=== PATIENT | female | born 1985 | race African-American/Black ===

== ENCOUNTER 2016-05-27 14:30 | Inpatient (IN) | payer OTHER ==
[2016-05-27 18:23] VITALS: BMI 25.4
--- NOTE | 2016-05-27 20:11 | HP ---
CIWA Score - CIWA Score Nausea/Vomitin-No Nausea/No Vomiting Muscle Tremors: 5 Anxiety: 4-Mod. Anxious/Guarded Agitation: 4-Moderately Restless Paroxysmal Sweats: 1-Minimal Palms Moist Orientation: 0-Oriented Tacttile Disturbances: 0-None Auditory Disturbances: 0-None Visual Disturbances: 0-None Headache: 2-Mild CIWA-Ar Total Score: 16 Admission ROS BHS - HPI Chief Complaint: C/O WITHDRAWAL SX'S. "I NEED HELP". SEEKING DETOX TXMENT Allergies/Adverse Reactions: Allergies Allergy/AdvReac Type Severity Reaction Status Date / Time No Known Allergies Allergy Verified 05/27/16 19:38 History of Present Illness: 31 Y.O. FEMALE WITH LONG HX OF ALCOHOLISM AND COCAINE DEPENDENCE ADMITTED TO DETOX TXMENT. DENIES ANY SIGNIFICANT PERIOD OF CLEAN TIME. Exam Limitations: No Limitations - Ebola screening Have you traveled outside of the country in the last 21 days: No Have you had contact with anyone from an Ebola affected area: No Have you been sick,other than usual withdrawal symptoms: No Do you have a fever: No - Review of Systems Constitutional: Night Sweats, Unintentional Wgt. Loss EENT: reports: No Symptoms Reported Respiratory: reports: No Symptoms reported Cardiac: reports: No Symptoms Reported GI: reports: No Symptoms Reported : reports: No Symptoms Reported Musculoskeletal: reports: No Symptoms Reported Integumentary: reports: No Symptoms Reported Neuro: reports: No Symptoms reported Endocrine: reports: No Symptoms Reported Hematology: reports: No Symptoms Reported Psychiatric: reports: Depressed Other Systems: Reviewed and Negative Patient History - Patient Medical History Hx Anemia: No Hx Asthma: No Hx Chronic Obstructive Pulmonary Disease (COPD): No Hx Cancer: No Hx Cardiac Disorders: No Hx Congestive Heart Failure: No Hx Hypertension: No Hx Hypercholesterolemia: No Hx Pacemaker: No HX Cerebrovascular Accident: No Hx Seizures: No Hx Dementia: No Hx Diabetes: No Hx Gastrointestinal Disorders: No Hx Liver Disease: No Hx Genitourinary Disorders: No Hx Sexually Transmitted Disorders: No Hx Renal Disease (ESRD): No Hx Thyroid Disease: No Hx Human Immunodeficiency Virus (HIV): No Hx Hepatitis C: No Hx Depression: Yes Hx Suicide Attempt: No Hx Bipolar Disorder: Yes Hx Schizophrenia: No - Patient Surgical History Past Surgical History: No Hx Neurologic Surgery: No Hx Cataract Extraction: No Hx Cardiac Surgery: No Hx Lung Surgery: No Hx Breast Surgery: No Hx Breast Biopsy: No Hx Abdominal Surgery: No Hx Appendectomy: No Hx Cholecystectomy: No Hx Genitourinary Surgery: No Hx Section: No Hx Orthopedic Surgery: No Hx Hysterectomy: No Anesthesia Reaction: No - PPD History Previous Implant?: Yes Documented Results: Negative w/o proof Implanted On Prior [facility] Admission?: Yes Date: 05/23/15 Results: 0MM PPD to be Administered?: Yes - Reproductive History Patient is a Female of Child Bearing Age (11 -55 yrs old): Yes Last Menstrual Period: 05/02/16 Patient : No - Smoking Cessation Smoking history: Current every day smoker Have you smoked in the past 12 months: Yes Aproximately how many cigarettes per day: 5 Cigars Per Day: 0 Hx Chewing Tobacco Use: No Initiated information on smoking cessation: Yes 'Breaking Loose' booklet given: 05/27/16 - Substance & Tx. History Hx Alcohol Use: Yes Hx Substance Use: Yes Substance Use Type: Alcohol, Cocaine Hx Substance Use Treatment: Yes ([facility]) - Substances Abused Alcohol Route: Oral Frequency: Daily Amount used: 1 pint Age of first use: 15 Date of Last Use: 05/27/16 Cocaine Route: Smoking Frequency: Daily Amount used: $20 Age of first use: 30 Date of Last Use: 05/26/16 Family Disease History - Family Disease History Family Disease History: Other: Mother (SUBSTANCE ABUSE) Admission Physical Exam BHS - Vital Signs Vital Signs: Vital Signs - 24 hr 05/27/16 18:21 Temperature 98.4 F Pulse Rate 75 Respiratory 18 Rate Blood Pressure 125/75 - Physical General Appearance: Yes: Mild Distress, Tremorous, Anxious HEENTM: Yes: EOMI, Normocephalic, Normal Voice, ERIKA, Pharynx Normal Respiratory: Yes: Chest Non-Tender, Lungs Clear, Normal Breath Sounds, No Respiratory Distress, No Accessory Muscle Use Neck: Yes: No masses,lesions,Nodules, Supple, Trachea in good position Breast: Yes: Breast Exam Deferred Cardiology: Yes: Regular Rhythm, Regular Rate, S1, S2 Abdominal: Yes: Normal Bowel Sounds, Non Tender, Soft Genitourinary: Yes: Within Normal Limits Back: Yes: Normal Inspection Musculoskeletal: Yes: full range of Motion, Gait Steady Extremities: Yes: Normal Capillary Refill, Normal Range of Motion, Non-Tender, Tremors Neurological: Yes: shelter case manager II-XII NML intact, Fully Oriented, Alert, Motor Strength 5/5 Integumentary: Yes: Normal Color, Warm, Moist Lymphatic: Yes: Within Normal Limits - Diagnostic (1) Cocaine dependence Current Visit: Yes Status: Chronic Qualifiers: Substance use status: uncomplicated Qualified Code(s): F14.20 - Cocaine dependence, uncomplicated (2) Nicotine dependence Current Visit: Yes Status: Chronic Qualifiers: Nicotine product type: cigarettes Substance use status: uncomplicated Qualified Code(s): F17.210 - Nicotine dependence, cigarettes, uncomplicated (3) Alcohol dependence with uncomplicated withdrawal Current Visit: Yes Status: Chronic Cleared for Admission [facility] - Detox or Rehab [facility] Level of Care: Medically Managed Detox Regimen/Protocol: Librium [facility] Breath Alcohol Content Breath Alcohol Content: 0.061 Urine Pregancy Test - Result Urine Test Results: Negative- NO Line Present Urine Drug Screen - Results Drug Screen Negative: No Urine Drug Screen Results: DOMINIC-Cocaine
[2016-05-27] MEDS ORDERED: MAGNESIUM CITRATE 300 ML BOTTLE PO PRN (20:22)
[2016-05-27] MEDS ORDERED: ACETAMINOPHEN 325 MG TABLET (FP) PO PRN (20:22)
[2016-05-27] MEDS ORDERED: chlordiazePOXIDE HCL 25 MG CAPSULE PO PRN (20:22)
[2016-05-27] MEDS ORDERED: MENTHOL/PHENOL 1 EACH UD MM PRN (20:22)
[2016-05-27] MEDS ORDERED: P-EPHED 60MG/TRIPROLIDI 2.5MG TABLET PO PRN (20:22)
[2016-05-27] MEDS ORDERED: diphenhydrAMINE HCL 50 MG CAPSULE PO PRN (20:22)
[2016-05-27] MEDS ORDERED: LOPERAMIDE HCL 2 MG CAPSULE PO PRN (20:22)
[2016-05-27] MEDS ORDERED: MAG HYDROX/AL HYDROX/SIMETH 30 ML UNIT-DOSE CUP PO PRN (20:22)
[2016-05-27] MEDS ORDERED: MAGNESIUM HYDROX 2400MG/30ML ORAL SUSPENSION 30 ML CUP PO PRN (20:22)
[2016-05-27] MEDS ORDERED: IBUPROFEN 400 MG TABLET (FP) PO PRN (20:22)
[2016-05-27] MEDS ORDERED: guaiFENesin/D-METHORPHAN HB 10 ML UNIT-DOSE CUPS PO PRN (20:22)
[2016-05-27] MEDS ORDERED: hydrOXYzine PAMOATE 50 MG CAPSULE (FP) PO PRN (20:22)
[2016-05-27] MEDS: NICOTINE POLACRILEX 2 MG GUM BC PRN (21:30)
[2016-05-27] MEDS: NICOTINE 14 MG/24 HOURS TOPICAL PATCH TD SCH (21:32)
[2016-05-27] MEDS: chlordiazePOXIDE HCL 25 MG CAPSULE PO SCH (23:48)
[2016-05-27] MEDS: THIAMINE HCL 100 MG TABLET (FP) PO SCH (23:48)
[2016-05-28] MEDS: chlordiazePOXIDE HCL 25 MG CAPSULE PO SCH ×4 (05:31→22:51)
[2016-05-28] MEDS: NICOTINE POLACRILEX 2 MG GUM BC PRN ×6 (05:33→20:07)
[2016-05-28 10:23] LABS: MCH 31.1 pg (25.7-33.7); MCHC 33.5 g/dl (32.0-36.0); MEAN CELL VOLUME 92.7 fl (80-96); PLATELET COUNT 118 K/MM3 (134-434); RDW 17.2 % (11.6-15.6); WHITE BLOOD COUNT 3.1 K/mm3 (4.0-10.0)
[2016-05-28] MEDS: PRENATAL VITAMINS W/ FOLIC ACID TABLET (FP) PO SCH (10:47)
[2016-05-28] MEDS: NICOTINE 14 MG/24 HOURS TOPICAL PATCH TD SCH (10:47)
--- NOTE | 2016-05-28 10:54 | PN ---
S CIWA - CIWA Score Nausea/Vomitin-No Nausea/No Vomiting Muscle Tremors: 4-Moderate,w/Arms Extend Anxiety: 3 Agitation: 4-Moderately Restless Paroxysmal Sweats: 3 Orientation: 0-Oriented Tacttile Disturbances: 0-None Auditory Disturbances: 0-None Visual Disturbances: 0-None Headache: 0-None Present CIWA-Ar Total Score: 14 BHS Progress Note (SOAP) Subjective: agitation sweats interrupted sleep irritable Objective: 05/28/16 10:53 Vital Signs Temperature 98.2 F 05/28/16 06:55 Pulse Rate 81 05/28/16 06:55 Respiratory Rate 18 05/28/16 06:55 Blood Pressure 123/75 05/28/16 06:55 O2 Sat by Pulse Oximetry (%) Laboratory Tests 05/28/16 05/28/16 07:00 07:00 WBC 3.1 L D RBC 4.20 Hgb 13.0 Hct 38.9 MCV 92.7 MCHC 33.5 RDW 17.2 H Plt Count 118 L D MPV 10.0 D Sodium 139 Potassium 3.8 Chloride 99 labs pending awake/alert ambulating no acute distress Assessment: 05/28/16 10:54 withdrawal sx Plan: continue detox increase fluids labs pending
[2016-05-28 10:58] LABS: ALBUMIN 3.1 g/dl (3.4-5.0); ALK PHOS 123 U/L (45-117); ANION GAP 9 (8-16); CALCIUM 8.2 mg/dL (8.5-10.1); CO2 31 mmol/L (21-32); CREATININE 0.6 mg/dL (0.55-1.02); GLUCOSE,RANDOM 83 mg/dL (74-106); SGOT/AST 228 U/L (15-37); SGPT/ALT 69 U/L (12-78); TOT PROT 6.8 g/dl (6.4-8.2)
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
[2016-05-28] MEDS ORDERED: HALOPERIDOL 5 MG TABLET (FP) PO SCH (22:00)
[2016-05-28] MEDS: THIAMINE HCL 100 MG TABLET (FP) PO SCH (22:51)
[2016-05-28] MEDS: BENZTROPINE MESYLATE 1 MG TABLET (FP) PO SCH (22:51)
[2016-05-28] MEDS: HALOPERIDOL 2 MG TABLET PO SCH (22:51)
[2016-05-29] MEDS: chlordiazePOXIDE HCL 25 MG CAPSULE PO SCH ×3 (04:48→17:33)
[2016-05-29] MEDS: NICOTINE POLACRILEX 2 MG GUM BC PRN ×6 (04:49→20:29)
--- NOTE | 2016-05-29 10:43 | PN ---
S CIWA - CIWA Score Nausea/Vomitin-No Nausea/No Vomiting Muscle Tremors: 3 Anxiety: 3 Agitation: 4-Moderately Restless Paroxysmal Sweats: 3 Orientation: 0-Oriented Tacttile Disturbances: 0-None Auditory Disturbances: 0-None Visual Disturbances: 0-None Headache: 0-None Present CIWA-Ar Total Score: 13 S Progress Note (SOAP) Subjective: agitation irritable interrupted sleep body aches Objective: 05/29/16 10:42 Vital Signs Temperature 97.9 F 05/29/16 10:34 Pulse Rate 66 05/29/16 10:34 Respiratory Rate 18 05/29/16 10:34 Blood Pressure 109/58 05/29/16 10:34 O2 Sat by Pulse Oximetry (%) Laboratory Tests 05/28/16 05/28/16 05/28/16 07:00 07:00 07:00 WBC 3.1 L D RBC 4.20 Hgb 13.0 Hct 38.9 MCV 92.7 MCHC 33.5 RDW 17.2 H Plt Count 118 L D MPV 10.0 D Sodium 139 Potassium 3.8 Chloride 99 Carbon Dioxide 31 Anion Gap 9 BUN 6 L D Creatinine 0.6 Creat Clearance w eGFR > 60 Random Glucose 83 Calcium 8.2 L Total Bilirubin 1.0 D AST 228 H D ALT 69 D Alkaline Phosphatase 123 H D Total Protein 6.8 Albumin 3.1 L RPR Titer Nonreactive labs pending awake/alert lying in bed no acute distress Assessment: 05/29/16 10:43 withdrawal sx Plan: continue detox increase fluids repeat cbc/cmp and f/u pending labs
[2016-05-29] MEDS: PRENATAL VITAMINS W/ FOLIC ACID TABLET (FP) PO SCH (10:56)
[2016-05-29] MEDS: HALOPERIDOL 2 MG TABLET PO SCH ×2 (10:56→22:38)
[2016-05-29] MEDS: BENZTROPINE MESYLATE 1 MG TABLET (FP) PO SCH ×2 (10:57→22:38)
[2016-05-29] MEDS: NICOTINE 14 MG/24 HOURS TOPICAL PATCH TD SCH (10:57)
--- NOTE | 2016-05-29 11:57 | EKG ---
Test Reason : Blood Pressure : / mmHG Vent. Rate : 065 BPM Atrial Rate : 065 BPM P-R Int : 158 ms QRS Dur : 080 ms QT Int : 450 ms P-R-T Axes : 075 064 048 degrees QTc Int : 468 ms NORMAL SINUS RHYTHM WITH SINUS ARRHYTHMIA POSSIBLE LEFT ATRIAL ENLARGEMENT NO PREVIOUS ECGS AVAILABLE Confirmed by AAKASH VALDES MD ([id number]) on 05/29/2016 11:57:10 AM Referred By: Confirmed By:AAKASH VALDES MD
[2016-05-29] MEDS: chlordiazePOXIDE 5 MG CAPSULE PO SCH (22:38)
[2016-05-29] MEDS: THIAMINE HCL 100 MG TABLET (FP) PO SCH (22:39)
[2016-05-30] MEDS: chlordiazePOXIDE 5 MG CAPSULE PO SCH ×2 (06:45→10:58)
[2016-05-30] MEDS: NICOTINE POLACRILEX 2 MG GUM BC PRN ×3 (06:46→13:02)
[2016-05-30 10:03] VITALS: PULSE 78
[2016-05-30 10:24] LABS: BASOPHIL 0.7 % (0-2.0); EOSINOPHIL 6.4 % (0-4.5); MCH 30.9 pg (25.7-33.7); MCHC 32.8 g/dl (32.0-36.0); MEAN CELL VOLUME 94.3 fl (80-96); MEAN PLT VOLUME 11.1 fl (7.5-11.1); NEUTROPHILS 48.9 % (42.8-82.8); RDW 16.8 % (11.6-15.6); WHITE BLOOD COUNT 5.6 K/mm3 (4.0-10.0)
[2016-05-30 10:57] LABS: ANION GAP 11 (8-16); BILIRUBIN,TOTAL 0.4 mg/dL (0.2-1.0); CALCIUM 8.6 mg/dL (8.5-10.1); CO2 24 mmol/L (21-32); CREATININE 0.6 mg/dL (0.55-1.02); GLUCOSE,RANDOM 134 mg/dL (74-106); SGOT/AST 111 U/L (15-37); SGPT/ALT 61 U/L (12-78); TOT PROT 6.7 g/dl (6.4-8.2)
[2016-05-30 10:58] LABS: ALK PHOS 122 U/L (45-117)
[2016-05-30] MEDS: BENZTROPINE MESYLATE 1 MG TABLET (FP) PO SCH (10:58)
[2016-05-30] MEDS: PRENATAL VITAMINS W/ FOLIC ACID TABLET (FP) PO SCH (10:58)
[2016-05-30] MEDS: HALOPERIDOL 2 MG TABLET PO SCH (10:59)
[2016-05-30] MEDS: NICOTINE 14 MG/24 HOURS TOPICAL PATCH TD SCH (10:59)
[2016-05-30 11:14] LABS: PLATELET COMMENT2 NO CLUMPING NOTED; PLATELET COUNT 120 K/MM3 (134-434); PLATELET ESTIMATE DECREASED (NORMAL)
--- NOTE | 2016-05-30 14:02 | PN ---
S Progress Note (SOAP) Subjective: ALERT,IRRITABLE,ANXIOUS,INTERRUPTED SLEEP Objective: 05/30/16 14:01 Vital Signs Temperature 97.7 F 05/30/16 10:03 Pulse Rate 78 05/30/16 10:03 Respiratory Rate 18 05/30/16 10:03 Blood Pressure 115/69 05/30/16 10:03 O2 Sat by Pulse Oximetry (%) Assessment: 05/30/16 14:02 WITHDRAWAL SYMPTOM Plan: CONTINUE DETOX,DISCHARGE IN AM
[2016-05-30 15:08] VITALS: BP 103/62; TEMP 98.1
--- NOTE | 2016-05-30 15:24 | PN ---
[facility] Progress Note Note: patient stated she would like to be discharged due to personal problem,seen by counselor, stable for discharged,advise to call intake for rehab on Wed06/01/16
--- NOTE | 2016-05-30 15:28 | DS ---
[facility] Detox Discharge Summary Admission Date: 05/27/16 Discharge Date: 05/30/16 - History Present History: Alcohol Dependence, Cannabis Dependence, Cocaine Dependence Additional Comments: patient has to leave due to personal problem,seen by counselor,stable for discharge,to return to rehab on 06/01/16 Pertinent Past History: nicotine dependence - Physical Exam Results Vital Signs: Vital Signs Temperature 98.1 F 05/30/16 15:07 Pulse Rate 78 05/30/16 15:07 Respiratory Rate 16 05/30/16 15:07 Blood Pressure 103/62 05/30/16 15:07 O2 Sat by Pulse Oximetry (%) Pertinent Admission Physical Exam Findings: withdrawal symptom - Treatment Hospital Course: Detox Protocol Followed, Detoxed Safely, Responded well, Discharged Condition Good, Rehab Referral Accepted Patient has Accepted [facility] Referral [facility] - Medication Discharge Medications: Ambulatory Orders Risperidone [Risperdal] 1 mg PO BID 05/21/15 Trazodone HCl [Desyrel -] 100 mg PO HS #30 tablet 11/07/15 Benztropine Mesylate [Cogentin -] 1 mg PO HS #30 tablet 05/28/16 Haloperidol [Haldol -] 5 mg PO HS #30 tablet 05/28/16 - AMA Did Patient Leave Against Medical Advice: No
[2016-05-30] MEDS ORDERED: chlordiazePOXIDE HCL 10 MG CAPSULE PO SCH (23:00)
== END 2016-05-30 16:11 | disposition home or self-care (01) | DRG 897 ==
LOC: YASAS 14:30 → Y6N 19:16
PROVIDERS: ADMIT Internal Medicine Addiction Medicine; ATTEND Internal Medicine Addiction Medicine
PROC: HZ2ZZZZ Detoxification Services for Substance Abuse Treatment (ICD-10-PCS; principal; 2016-05-30)
DX: F10.230 Alcohol dependence with withdrawal, uncomplicated (principal); F14.20 Cocaine dependence, uncomplicated; F12.20 Cannabis dependence, uncomplicated; F17.210 Nicotine dependence, cigarettes, uncomplicated; F31.9 Bipolar disorder, unspecified
CPT/HCPCS: 36415; 80053; 85025; 85027; 86593; 93005; 93010

== ENCOUNTER 2017-02-02 13:30 | Inpatient (IN) | payer OTHER ==
[2017-02-02 21:07] VITALS: BMI 27.6
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
[2017-02-02] MEDS ORDERED: MAG HYDROX/AL HYDROX/SIMETH 30 ML UNIT-DOSE CUP PO PRN (21:23)
[2017-02-02] MEDS ORDERED: guaiFENesin/D-METHORPHAN HB 10 ML UNIT-DOSE CUPS PO PRN (21:23)
[2017-02-02] MEDS ORDERED: MAGNESIUM CITRATE 300 ML BOTTLE PO PRN (21:23)
[2017-02-02] MEDS ORDERED: MENTHOL/PHENOL 1 EACH UD MM PRN (21:23)
[2017-02-02] MEDS ORDERED: chlordiazePOXIDE HCL 25 MG CAPSULE PO PRN (21:23)
[2017-02-02] MEDS ORDERED: P-EPHED 60MG/TRIPROLIDI 2.5MG TABLET PO PRN (21:23)
[2017-02-02] MEDS ORDERED: LOPERAMIDE HCL 2 MG CAPSULE PO PRN (21:23)
[2017-02-02] MEDS: chlordiazePOXIDE HCL 25 MG CAPSULE PO SCH (22:25)
[2017-02-02] MEDS: THIAMINE HCL 100 MG TABLET (FP) PO SCH (22:25)
[2017-02-02 23:32] LABS: URINE APPEARANCE SLCLOUDY; URINE BILIRUBIN NEGATIVE (NEGATIVE); URINE BLOOD NEGATIVE (NEGATIVE); URINE COLOR YELLOW; URINE GLUCOSE (UA) NEGATIVE (NEGATIVE); URINE KETONE NEGATIVE (NEGATIVE); URINE NITRITE NEGATIVE (NEGATIVE); URINE PROTEIN NEGATIVE (NEGATIVE); URINE UROBILINOGEN NEGATIVE mg/dL (0.2-1.0)
[2017-02-03] MEDS: NICOTINE POLACRILEX 2 MG GUM BC PRN ×5 (05:24→22:36)
[2017-02-03] MEDS: chlordiazePOXIDE HCL 25 MG CAPSULE PO SCH ×4 (05:24→22:34)
--- NOTE | 2017-02-03 07:50 | CONSULT ---
[facility] Psychiatric Consult - Data Date of interview: 02/03/17 Admission source: [facility] Identifying data: This is 31 years old female with psychiatrichospitalization history intoxicated with: Cocaine, Alcohol and Nicotine, history of Cannabis and Xanax abuse as well Substance Abuse History: - Smoking Cessation. Smoking history: Current every day smoker. Have you smoked in the past 12 months: Yes. Aproximately how many cigarettes per day: 5. Cigars Per Day: 0. Hx Chewing Tobacco Use: No. Initiated information on smoking cessation: Yes. 'Breaking Loose' booklet given : 02/02/17. - Substance & Tx. History. Hx Alcohol Use: Yes. Hx Substance Use : Yes. Substance Use Type: Alcohol, Cocaine, Marijuana. Hx Substance Use Treatment: Yes (04/2016 [facility]). - Substances Abused. Alcohol. Route: Oral. Frequency: Daily. Amount used: 1/2 pint vodka+12ozx2 beer. Age of first use: 15. Date of Last Use: 02/01/17 Medical History: Denies significant medical issues, as per computer history of Aspiration pneumonia, Seizure and Thyroid disorder. Psychiatric History: Patient reports history of Bipolar Disorder with most recent psychiatric [facility]otal[facility] on [address] [facility] for safety, reports currently taking: Trazodone 100mg po qhs. Haldol 5mg po qhs. Cogentine 1mg po qhs Physical/Sexual Abuse/Trauma History: Denies Additional Comment: Trazodone 100mg po qhs. Haldol 5mg po qhs. Cogentine 1mg po qhs Mental Status Exam - Mental Status Exam Alert and Oriented to: Person Cognitive Function: Fair Patient Appearance: Unkempt Mood: Sad Affect: Flat Patient Behavior: Sedated Speech Pattern: Delayed Voice Loudness: Mildly Soft/Quiet Thought Process: Circumstantial Thought Disorder: Being Controlled Hallucinations: Denies Suicidal Ideation: Denies Homicidal Ideation: Denies Insight/Judgement: Fair Sleep: Difficulty falling asleep Appetite: Fair Muscle strength/Tone: Mild Hypotonicity Gait/Station: Shuffling Additional Comments: Trazodone 100mg po qhs. Haldol 5mg po qhs. Cogentine 1mg po qhs Psychiatric Findings - Problem List ([place] 1, 2,3) (1) Alcohol dependence with uncomplicated withdrawal Current Visit: Yes Status: Acute (2) Nicotine dependence Current Visit: Yes Status: Acute Qualifiers: Nicotine product type: cigarettes Substance use status: in withdrawal Qualified Code(s): F17.213 - Nicotine dependence, cigarettes, with withdrawal (3) Cannabis dependence, uncomplicated Current Visit: Yes Status: Chronic (4) Cocaine dependence, uncomplicated Current Visit: Yes Status: Chronic (5) Bipolar II disorder Current Visit: Yes Status: Suspected (6) Cocaine dependence Current Visit: No Status: Acute Qualifiers: Substance use status: uncomplicated Qualified Code(s): F14.20 - Cocaine dependence, uncomplicated (7) Marijuana dependence Current Visit: No Status: Acute (8) Uncomplicated alcohol dependence Current Visit: No Status: Acute (9) Bipolar I disorder Current Visit: No Status: Chronic (10) Bipolar 1 disorder, depressed Current Visit: No Status: Suspected - Initial Treatment Plan Initial Treatment Plan: Trazodone 100mg po qhs. Haldol 5mg po qhs. Cogentine 1mg po qhs
--- NOTE | 2017-02-03 10:24 | EKG ---
Test Reason : Blood Pressure : / mmHG Vent. Rate : 070 BPM Atrial Rate : 070 BPM P-R Int : 136 ms QRS Dur : 080 ms QT Int : 410 ms P-R-T Axes : 059 064 064 degrees QTc Int : 442 ms NORMAL SINUS RHYTHM NORMAL ECG WHEN COMPARED WITH ECG OF 27-MAY-2016 20:16, NO SIGNIFICANT CHANGE WAS FOUND Confirmed by COCO HATHAWAY MD ([id number]) on 02/03/2017 10:23:42 AM Referred By: Confirmed By:COCO HATHAWAY MD
[2017-02-03] MEDS: PRENATAL VITAMINS W/ FOLIC ACID TABLET (FP) PO SCH (10:50)
[2017-02-03] MEDS: NICOTINE 14 MG/24 HOURS TOPICAL PATCH TD SCH (10:50)
[2017-02-03 11:12] LABS: MCHC 33.3 g/dl (32.0-36.0); MEAN PLT VOLUME 9.6 fl (7.5-11.1); PLATELET COUNT 230 K/MM3 (134-434); WHITE BLOOD COUNT 6.4 K/mm3 (4.0-10.0)
--- NOTE | 2017-02-03 11:14 | PN ---
S CIWA - CIWA Score Nausea/Vomitin-No Nausea/No Vomiting Muscle Tremors: 4-Moderate,w/Arms Extend Anxiety: 3 Agitation: 4-Moderately Restless Paroxysmal Sweats: 3 Orientation: 0-Oriented Tacttile Disturbances: 0-None Auditory Disturbances: 0-None Visual Disturbances: 0-None Headache: 0-None Present CIWA-Ar Total Score: 14 [facility] Progress Note (SOAP) Subjective: irritable agitation sweats tired Objective: 02/03/17 11:13 Vital Signs Temperature 98.1 F 02/03/17 10:18 Pulse Rate 69 02/03/17 10:18 Respiratory Rate 18 02/03/17 10:18 Blood Pressure 123/85 02/03/17 10:18 O2 Sat by Pulse Oximetry (%) Laboratory Tests 02/02/17 22:17 Urine Color Yellow Urine Appearance Slcloudy Urine pH 6.0 Ur Specific [place] 1.018 Urine Protein Negative Urine Glucose (UA) Negative Urine Ketones Negative Urine Blood Negative Urine Nitrite Negative Urine Bilirubin Negative Urine Urobilinogen Negative labs pending aaox3 ambulating no acute distress Assessment: 02/03/17 11:14 withdrawal sx Plan: continue detox increase fluids labs pending
[2017-02-03 11:16] LABS: URINE LEUK ESTERASE Negative (NEGATIVE)
[2017-02-03 11:25] LABS: ALBUMIN 3.3 g/dl (3.4-5.0); ALK PHOS 106 U/L (45-117); ANION GAP 8 (8-16); BILIRUBIN,TOTAL 0.7 mg/dL (0.2-1.0); CALCIUM 8.8 mg/dL (8.5-10.1); CO2 29 mmol/L (21-32); CREATININE 0.4 mg/dL (0.55-1.02); GLUCOSE,RANDOM 68 mg/dL (74-106); SGOT/AST 20 U/L (15-37); SGPT/ALT 14 U/L (12-78); TOT PROT 6.8 g/dl (6.4-8.2)
[2017-02-03] MEDS: IBUPROFEN 400 MG TABLET (FP) PO PRN (17:10)
[2017-02-03] MEDS: ACETAMINOPHEN 325 MG TABLET (FP) PO PRN (19:32)
[2017-02-03] MEDS: HALOPERIDOL 5 MG TABLET (FP) PO SCH (22:34)
[2017-02-03] MEDS: traZODone HCL 100 MG TABLET (FP) PO SCH (22:34)
[2017-02-03] MEDS: BENZTROPINE MESYLATE 1 MG TABLET (FP) PO SCH (22:34)
[2017-02-03] MEDS: THIAMINE HCL 100 MG TABLET (FP) PO SCH (22:34)
[2017-02-04] MEDS: NICOTINE POLACRILEX 2 MG GUM BC PRN ×6 (05:55→22:38)
[2017-02-04] MEDS: chlordiazePOXIDE HCL 25 MG CAPSULE PO SCH ×3 (07:36→17:29)
[2017-02-04] MEDS: NICOTINE 14 MG/24 HOURS TOPICAL PATCH TD SCH (11:00)
[2017-02-04] MEDS: PRENATAL VITAMINS W/ FOLIC ACID TABLET (FP) PO SCH (11:00)
--- NOTE | 2017-02-04 11:33 | PN ---
[facility] CIWA - CIWA Score Nausea/Vomitin-No Nausea/No Vomiting Muscle Tremors: 4-Moderate,w/Arms Extend Anxiety: 3 Agitation: 2 Paroxysmal Sweats: 2 Orientation: 0-Oriented Tacttile Disturbances: 0-None Auditory Disturbances: 0-None Visual Disturbances: 0-None Headache: 0-None Present CIWA-Ar Total Score: 11 [facility] Progress Note (SOAP) Subjective: back pain sweats shakes agitation Objective: 02/04/17 11:31 Vital Signs Temperature 96.3 F L 02/04/17 09:59 Pulse Rate 75 02/04/17 09:59 Respiratory Rate 18 02/04/17 09:59 Blood Pressure 112/76 02/04/17 09:59 O2 Sat by Pulse Oximetry (%) Laboratory Tests 02/02/17 02/03/17 02/03/17 22:17 07:00 07:00 WBC 6.4 RBC 4.31 Hgb 13.4 Hct 40.1 MCV 93.0 MCH 31.0 MCHC 33.3 RDW 15.0 D Plt Count 230 D MPV 9.6 D Sodium 138 Potassium 4.1 Chloride 101 Carbon Dioxide 29 D Anion Gap 8 BUN 10 D Creatinine 0.4 L D Creat Clearance w eGFR > 60 Random Glucose 68 L D Calcium 8.8 Total Bilirubin 0.7 D AST 20 D ALT 14 D Alkaline Phosphatase 106 Total Protein 6.8 Albumin 3.3 L Urine Color Yellow Urine Appearance Slcloudy Urine pH 6.0 Ur Specific [place] 1.018 Urine Protein Negative Urine Glucose (UA) Negative Urine Ketones Negative Urine Blood Negative Urine Nitrite Negative Urine Bilirubin Negative Urine Urobilinogen Negative RPR Titer 02/03/17 07:00 WBC RBC Hgb Hct MCV MCH MCHC RDW Plt Count MPV Sodium Potassium Chloride Carbon Dioxide Anion Gap BUN Creatinine Creat Clearance w eGFR Random Glucose Calcium Total Bilirubin AST ALT Alkaline Phosphatase Total Protein Albumin Urine Color Urine Appearance Urine pH Ur Specific [place] Urine Protein Urine Glucose (UA) Urine Ketones Urine Blood Urine Nitrite Urine Bilirubin Urine Urobilinogen RPR Titer Nonreactive aaox3 ambulating no acute distress Assessment: 02/04/17 11:33 withdrawal sx Plan: continue detox increase fluids analgesic balm
[2017-02-04] MEDS: METHYL SALICYLATE/MENTHOL OINT 30 GM TUBE TP SCH ×2 (12:23→22:33)
[2017-02-04] MEDS: MAGNESIUM HYDROX 2400MG/30ML ORAL SUSPENSION 30 ML CUP PO PRN (19:11)
[2017-02-04] MEDS: BENZTROPINE MESYLATE 1 MG TABLET (FP) PO SCH (22:35)
[2017-02-04] MEDS: HALOPERIDOL 5 MG TABLET (FP) PO SCH (22:35)
[2017-02-04] MEDS: THIAMINE HCL 100 MG TABLET (FP) PO SCH (22:35)
[2017-02-04] MEDS: chlordiazePOXIDE 5 MG CAPSULE PO SCH (22:35)
[2017-02-04] MEDS: traZODone HCL 100 MG TABLET (FP) PO SCH (22:35)
[2017-02-05] MEDS: chlordiazePOXIDE 5 MG CAPSULE PO SCH ×2 (05:51→10:40)
[2017-02-05] MEDS: NICOTINE POLACRILEX 2 MG GUM BC PRN ×5 (05:52→21:15)
[2017-02-05] MEDS: IBUPROFEN 400 MG TABLET (FP) PO PRN (05:53)
[2017-02-05] MEDS: MAGNESIUM HYDROX 2400MG/30ML ORAL SUSPENSION 30 ML CUP PO PRN (06:01)
--- NOTE | 2017-02-05 09:34 | PN ---
[facility] Progress Note Note: pt states she feels better; I want to go to rehab today. no s/s of withdrawals
--- NOTE | 2017-02-05 09:36 | DS ---
[facility] Detox Discharge Summary Admission Date: 02/02/17 Discharge Date: 02/05/17 - History Present History: Alcohol Dependence, Cannabis Dependence, Cocaine Dependence - Physical Exam Results Vital Signs: Vital Signs Temperature 96.8 F L 02/05/17 06:00 Pulse Rate 83 02/05/17 06:00 Respiratory Rate 18 02/05/17 06:00 Blood Pressure 100/65 02/05/17 06:00 O2 Sat by Pulse Oximetry (%) - Treatment Hospital Course: Detox Protocol Followed, Detoxed Safely, Responded well, Discharged Condition Good, Rehab Referral Accepted - Medication Discharge Medications: Ambulatory Orders Benztropine Mesylate [Cogentin -] 1 mg PO HS #30 tablet 05/28/16 Benztropine Mesylate [Cogentin -] 1 mg PO HS #30 tablet 02/03/17 Haloperidol [Haldol -] 5 mg PO HS #30 tablet 02/03/17 Trazodone HCl [Desyrel -] 100 mg PO HS #30 tablet 02/03/17 - Diagnosis (1) Alcohol dependence with uncomplicated withdrawal Current Visit: Yes Status: Chronic (2) Nicotine dependence Current Visit: Yes Status: Chronic Qualifiers: Nicotine product type: cigarettes Substance use status: uncomplicated Qualified Code(s): F17.210 - Nicotine dependence, cigarettes, uncomplicated (3) Cannabis dependence, uncomplicated Current Visit: Yes Status: Chronic (4) Cocaine dependence, uncomplicated Current Visit: Yes Status: Chronic (5) Bipolar II disorder Current Visit: Yes Status: Suspected (6) Uncomplicated alcohol dependence Current Visit: No Status: Acute (7) Bipolar 1 disorder, depressed Current Visit: No Status: Suspected (8) Enlarged thyroid Current Visit: No Status: Suspected (9) Seizure disorder Current Visit: No Status: Suspected - AMA Did Patient Leave Against Medical Advice: No
[2017-02-05] MEDS: METHYL SALICYLATE/MENTHOL OINT 30 GM TUBE TP SCH ×2 (10:39→22:00)
[2017-02-05] MEDS: PRENATAL VITAMINS W/ FOLIC ACID TABLET (FP) PO SCH (10:40)
[2017-02-05] MEDS: NICOTINE 14 MG/24 HOURS TOPICAL PATCH TD SCH (10:40)
[2017-02-05] MEDS: ACETAMINOPHEN 325 MG TABLET (FP) PO PRN ×2 (10:42→22:47)
[2017-02-05] MEDS ORDERED: COLLOIDAL OATMEAL 1 BAR EACH TP PRN (14:06)
--- NOTE | 2017-02-05 14:06 | HP ---
[facility] Re[facility] Assess/Revision - Admission History Admitted to Rehab from: [facility] [place] Date of Admission to Rehab: 02/05/17 - Vital signs Vital Signs: Vital Signs Period Temp Pulse Resp BP Sys/Reynolds Pulse Ox Last 24 Hr 96.8 F-98.1 F 75-93 18-20 97-117/58-75 - Findings Detox History & Physical reviewed: Yes Concur with findings: Yes Inpatient Rehab Admission - Initial Determination Are CD services needed?: Yes Free of communicable disease: Yes Not in need of hospitalization: Yes - Rehab Admission Criteria Previous failed treatment: Yes Patient is meeting Inpatient Rehab admission criteria:: Yes
[2017-02-05] MEDS ORDERED: AMMONIUM LACTATE 12% LOTION 225 GM BOTTLE TP PRN (14:07)
[2017-02-05] MEDS: BENZTROPINE MESYLATE 1 MG TABLET (FP) PO SCH (21:14)
[2017-02-05] MEDS: traZODone HCL 100 MG TABLET (FP) PO SCH (21:14)
[2017-02-05] MEDS: THIAMINE HCL 100 MG TABLET (FP) PO SCH (21:15)
[2017-02-05] MEDS: HALOPERIDOL 5 MG TABLET (FP) PO SCH (21:15)
[2017-02-05] MEDS ORDERED: chlordiazePOXIDE HCL 10 MG CAPSULE PO SCH (23:00)
[2017-02-06] MEDS: NICOTINE POLACRILEX 2 MG GUM BC PRN ×3 (06:14→15:56)
[2017-02-06 07:12] VITALS: TEMP 97.2
[2017-02-06] MEDS: PRENATAL VITAMINS W/ FOLIC ACID TABLET (FP) PO SCH (09:42)
[2017-02-06] MEDS: NICOTINE 14 MG/24 HOURS TOPICAL PATCH TD SCH (09:42)
[2017-02-06] MEDS: METHYL SALICYLATE/MENTHOL OINT 30 GM TUBE TP SCH ×2 (09:45→21:10)
[2017-02-06 11:00] VITALS: BP 122/70; PULSE 66
[2017-02-06 12:47] LABS: HIV 1 & 2 AB NEGATIVE; HIV 1 AGp24 NEGATIVE
[2017-02-06] MEDS: ACETAMINOPHEN 325 MG TABLET (FP) PO PRN (15:20)
[2017-02-06] MEDS: MAGNESIUM HYDROX 2400MG/30ML ORAL SUSPENSION 30 ML CUP PO PRN (15:54)
[2017-02-06] MEDS ORDERED: PT OWN MED DRAWER 7, Y5N ONE ×2 (20:03→23:38)
[2017-02-06] MEDS: traZODone HCL 100 MG TABLET (FP) PO SCH (21:09)
[2017-02-06] MEDS: THIAMINE HCL 100 MG TABLET (FP) PO SCH (21:09)
[2017-02-06] MEDS: BENZTROPINE MESYLATE 1 MG TABLET (FP) PO SCH (21:09)
[2017-02-06] MEDS: HALOPERIDOL 5 MG TABLET (FP) PO SCH (21:09)
== END 2017-02-06 22:45 | disposition left against medical advice (07) | DRG 894 ==
LOC: YASAS 13:30 → Y6N 21:13 → Y3E 02-05 13:32
PROVIDERS: ADMIT Internal Medicine; ATTEND Psychiatry & Neurology Psychiatry
PROC: HZ42ZZZ Group Counseling for Substance Abuse Treatment, Cognitive-Behavioral (ICD-10-PCS; principal; 2017-02-02)
DX: F10.230 Alcohol dependence with withdrawal, uncomplicated (principal); F14.20 Cocaine dependence, uncomplicated; F31.81 Bipolar II disorder; F31.89 Other bipolar disorder; F17.210 Nicotine dependence, cigarettes, uncomplicated; F12.20 Cannabis dependence, uncomplicated; E04.9 Nontoxic goiter, unspecified; Z86.69 Personal history of other diseases of the nervous system and sense organs
CPT/HCPCS: 36415; 80053; 81003; 85027; 86593; 87389; 93005; 93010

== ENCOUNTER 2017-03-11 12:59 | Inpatient (IN) | payer OTHER ==
[2017-03-11 13:54] VITALS: BMI 26.5
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
[2017-03-11] MEDS ORDERED: LOPERAMIDE HCL 2 MG CAPSULE PO PRN (19:53)
[2017-03-11] MEDS ORDERED: MAG HYDROX/AL HYDROX/SIMETH 30 ML UNIT-DOSE CUP PO PRN (19:53)
[2017-03-11] MEDS ORDERED: MAGNESIUM HYDROX 2400MG/30ML ORAL SUSPENSION 30 ML CUP PO PRN (19:53)
[2017-03-11] MEDS ORDERED: MENTHOL/PHENOL 1 EACH UD MM PRN (19:53)
[2017-03-11] MEDS ORDERED: P-EPHED 60MG/TRIPROLIDI 2.5MG TABLET PO PRN (19:53)
[2017-03-11] MEDS ORDERED: guaiFENesin/D-METHORPHAN HB 10 ML UNIT-DOSE CUPS PO PRN (19:53)
[2017-03-11] MEDS ORDERED: chlordiazePOXIDE HCL 25 MG CAPSULE PO PRN (19:53)
[2017-03-11] MEDS ORDERED: IBUPROFEN 400 MG TABLET (FP) PO PRN (19:53)
[2017-03-11] MEDS ORDERED: ACETAMINOPHEN 325 MG TABLET (FP) PO PRN (19:53)
[2017-03-11] MEDS ORDERED: MAGNESIUM CITRATE 300 ML BOTTLE PO PRN (19:53)
[2017-03-11] MEDS ORDERED: NICOTINE 14 MG/24 HOURS TOPICAL PATCH TD PRN (19:56)
[2017-03-11] MEDS: NICOTINE POLACRILEX 2 MG GUM BUC PRN (21:08)
[2017-03-11] MEDS: chlordiazePOXIDE HCL 25 MG CAPSULE PO SCH (22:46)
[2017-03-11] MEDS: THIAMINE HCL 100 MG TABLET (FP) PO SCH (22:47)
[2017-03-11 23:13] LABS: URINE APPEARANCE CLEAR; URINE BILIRUBIN NEGATIVE (NEGATIVE); URINE BLOOD NEGATIVE (NEGATIVE); URINE COLOR LTYELLOW; URINE GLUCOSE (UA) NEGATIVE (NEGATIVE); URINE KETONE NEGATIVE (NEGATIVE); URINE LEUK ESTERASE NEGATIVE (NEGATIVE); URINE NITRITE NEGATIVE (NEGATIVE); URINE PROTEIN NEGATIVE (NEGATIVE); URINE UROBILINOGEN NEGATIVE mg/dL (0.2-1.0)
[2017-03-12] MEDS: chlordiazePOXIDE HCL 25 MG CAPSULE PO SCH ×4 (06:35→23:20)
[2017-03-12] MEDS: NICOTINE POLACRILEX 2 MG GUM BUC PRN ×3 (07:23→17:51)
[2017-03-12 10:06] LABS: HEMATOCRIT 36.9 % (32.4-45.2); HEMOGLOBIN 12.2 GM/dL (10.7-15.3); MCH 29.8 pg (25.7-33.7); MCHC 32.9 g/dl (32.0-36.0); MEAN CELL VOLUME 90.6 fl (80-96); MEAN PLT VOLUME 9.3 fl (7.5-11.1); PLATELET COUNT 315 K/MM3 (134-434); RBC 4.08 M/mm3 (3.60-5.2); WHITE BLOOD COUNT 4.7 K/mm3 (4.0-10.0)
[2017-03-12] MEDS: PRENATAL VITAMINS W/ FOLIC ACID TABLET (FP) PO SCH (10:09)
[2017-03-12 10:27] LABS: CHLORIDE 103 mmol/L (98-107); POTASSIUM 4.2 mmol/L (3.5-5.1); SODIUM 137 mmol/L (136-145)
[2017-03-12 10:41] LABS: ALK PHOS 111 U/L (45-117); ANION GAP 7 (8-16); BILIRUBIN,TOTAL 0.5 mg/dL (0.2-1.0); BLOOD UREA NITROGEN 10 mg/dL (7-18); CALCIUM 7.9 mg/dL (8.5-10.1); CO2 27 mmol/L (21-32); CREATININE 0.4 mg/dL (0.55-1.02); GLUCOSE,RANDOM 83 mg/dL (74-106); SGOT/AST 14 U/L (15-37); SGPT/ALT 11 U/L (12-78); TOT PROT 6.6 g/dl (6.4-8.2)
--- NOTE | 2017-03-12 11:22 | PN ---
S CIWA - CIWA Score Nausea/Vomitin Muscle Tremors: 3 Anxiety: 3 Agitation: 3 Paroxysmal Sweats: 1-Minimal Palms Moist Orientation: 0-Oriented Tacttile Disturbances: 1-Very Mild Itch/Numbness Auditory Disturbances: 1-Very Mild Visual Disturbances: 0-None Headache: 2-Mild CIWA-Ar Total Score: 17 [facility] Progress Note (SOAP) Subjective: ALERT,IRRITABLE,ANXIOUS,INTERRUPTED SLEEP,TREMOR,PAIN IN THE BODY Objective: 03/12/17 11:20 Vital Signs Temperature 98.2 F 03/12/17 10:19 Pulse Rate 80 03/12/17 10:19 Respiratory Rate 18 03/12/17 10:19 Blood Pressure 123/74 03/12/17 10:19 O2 Sat by Pulse Oximetry (%) Laboratory Last Values WBC 4.7 K/mm3 (4.0-10.0) 03/12/17 07:30 RBC 4.08 M/mm3 (3.60-5.2) 03/12/17 07:30 Hgb 12.2 GM/dL (10.7-15.3) 03/12/17 07:30 Hct 36.9 % (32.4-45.2) 03/12/17 07:30 MCV 90.6 fl (80-96) 03/12/17 07:30 MCH 29.8 pg (25.7-33.7) 03/12/17 07:30 MCHC 32.9 g/dl (32.0-36.0) 03/12/17 07:30 RDW 15.0 % (11.6-15.6) 03/12/17 07:30 Plt Count 315 K/MM3 (134-434) D 03/12/17 07:30 MPV 9.3 fl (7.5-11.1) 03/12/17 07:30 Sodium 137 mmol/L (136-145) 03/12/17 07:30 Potassium 4.2 mmol/L (3.5-5.1) 03/12/17 07:30 Chloride 103 mmol/L (98-107) 03/12/17 07:30 Carbon Dioxide 27 mmol/L (21-32) 03/12/17 07:30 Anion Gap 7 (8-16) L 03/12/17 07:30 BUN 10 mg/dL (7-18) 03/12/17 07:30 Creatinine 0.4 mg/dL (0.55-1.02) L 03/12/17 07:30 Creat Clearance w eGFR > 60 (>60) 03/12/17 07:30 Random Glucose 83 mg/dL (74-106) 03/12/17 07:30 Calcium 7.9 mg/dL (8.5-10.1) L 03/12/17 07:30 Total Bilirubin 0.5 mg/dL (0.2-1.0) D 03/12/17 07:30 AST 14 U/L (15-37) L D 03/12/17 07:30 ALT 11 U/L (12-78) L D 03/12/17 07:30 Alkaline Phosphatase 111 U/L (45-117) 03/12/17 07:30 Total Protein 6.6 g/dl (6.4-8.2) 03/12/17 07:30 Albumin 3.0 g/dl (3.4-5.0) L 03/12/17 07:30 Urine Color Ltyellow 03/11/17 21:00 Urine Appearance Clear 03/11/17 21:00 Urine pH 6.0 (5.0-8.0) 03/11/17 21:00 Ur Specific [place] 1.010 (1.001-1.035) 03/11/17 21:00 Urine Protein Negative (NEGATIVE) 03/11/17 21:00 Urine Glucose (UA) Negative (NEGATIVE) 03/11/17 21:00 Urine Ketones Negative (NEGATIVE) 03/11/17 21:00 Urine Blood Negative (NEGATIVE) 03/11/17 21:00 Urine Nitrite Negative (NEGATIVE) 03/11/17 21:00 Urine Bilirubin Negative (NEGATIVE) 03/11/17 21:00 Urine Urobilinogen Negative mg/dL (0.2-1.0) 03/11/17 21:00 Ur Leukocyte Esterase Negative (NEGATIVE) 03/11/17 21:00 03/12/17 11:21 LAB PENDING EKG NSR Assessment: 03/12/17 11:21 WITHDRAWAL SYMPTOM Plan: CONTINUE DETOX
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
[2017-03-12] MEDS ORDERED: BENZTROPINE MESYLATE 1 MG TABLET (FP) PO SCH (22:00)
[2017-03-12] MEDS ORDERED: HALOPERIDOL 5 MG TABLET (FP) PO SCH (22:00)
[2017-03-12] MEDS: THIAMINE HCL 100 MG TABLET (FP) PO SCH (23:20)
[2017-03-13] MEDS: chlordiazePOXIDE HCL 25 MG CAPSULE PO SCH ×2 (05:49→10:19)
[2017-03-13] MEDS: NICOTINE POLACRILEX 2 MG GUM BUC PRN ×2 (05:49→10:24)
[2017-03-13] MEDS ORDERED: BACITRACIN 0.9 GM PACKET TP SCH (10:00)
[2017-03-13] MEDS: PRENATAL VITAMINS W/ FOLIC ACID TABLET (FP) PO SCH (10:18)
[2017-03-13 10:22] VITALS: BP 132/88; PULSE 74; TEMP 98.8
--- NOTE | 2017-03-13 10:49 | PN ---
S CIWA - CIWA Score Nausea/Vomitin Muscle Tremors: 3 Anxiety: 3 Agitation: 2 Paroxysmal Sweats: 1-Minimal Palms Moist Orientation: 0-Oriented Tacttile Disturbances: 1-Very Mild Itch/Numbness Auditory Disturbances: 1-Very Mild Visual Disturbances: 0-None Headache: 2-Mild CIWA-Ar Total Score: 16 [facility] Progress Note (SOAP) Subjective: ALERT,IRRITABLE,ANXIOUS,INTERRUPTED SLEEP,TREMOR Objective: 03/13/17 10:47 Vital Signs Temperature 98.8 F 03/13/17 10:21 Pulse Rate 74 03/13/17 10:21 Respiratory Rate 16 03/13/17 10:21 Blood Pressure 132/88 03/13/17 10:21 O2 Sat by Pulse Oximetry (%) Laboratory Last Values WBC 4.7 K/mm3 (4.0-10.0) 03/12/17 07:30 RBC 4.08 M/mm3 (3.60-5.2) 03/12/17 07:30 Hgb 12.2 GM/dL (10.7-15.3) 03/12/17 07:30 Hct 36.9 % (32.4-45.2) 03/12/17 07:30 MCV 90.6 fl (80-96) 03/12/17 07:30 MCH 29.8 pg (25.7-33.7) 03/12/17 07:30 MCHC 32.9 g/dl (32.0-36.0) 03/12/17 07:30 RDW 15.0 % (11.6-15.6) 03/12/17 07:30 Plt Count 315 K/MM3 (134-434) D 03/12/17 07:30 MPV 9.3 fl (7.5-11.1) 03/12/17 07:30 Sodium 137 mmol/L (136-145) 03/12/17 07:30 Potassium 4.2 mmol/L (3.5-5.1) 03/12/17 07:30 Chloride 103 mmol/L (98-107) 03/12/17 07:30 Carbon Dioxide 27 mmol/L (21-32) 03/12/17 07:30 Anion Gap 7 (8-16) L 03/12/17 07:30 BUN 10 mg/dL (7-18) 03/12/17 07:30 Creatinine 0.4 mg/dL (0.55-1.02) L 03/12/17 07:30 Creat Clearance w eGFR > 60 (>60) 03/12/17 07:30 Random Glucose 83 mg/dL (74-106) 03/12/17 07:30 Calcium 7.9 mg/dL (8.5-10.1) L 03/12/17 07:30 Total Bilirubin 0.5 mg/dL (0.2-1.0) D 03/12/17 07:30 AST 14 U/L (15-37) L D 03/12/17 07:30 ALT 11 U/L (12-78) L D 03/12/17 07:30 Alkaline Phosphatase 111 U/L (45-117) 03/12/17 07:30 Total Protein 6.6 g/dl (6.4-8.2) 03/12/17 07:30 Albumin 3.0 g/dl (3.4-5.0) L 03/12/17 07:30 Urine Color Ltyellow 03/11/17 21:00 Urine Appearance Clear 03/11/17 21:00 Urine pH 6.0 (5.0-8.0) 03/11/17 21:00 Ur Specific [place] 1.010 (1.001-1.035) 03/11/17 21:00 Urine Protein Negative (NEGATIVE) 03/11/17 21:00 Urine Glucose (UA) Negative (NEGATIVE) 03/11/17 21:00 Urine Ketones Negative (NEGATIVE) 03/11/17 21:00 Urine Blood Negative (NEGATIVE) 03/11/17 21:00 Urine Nitrite Negative (NEGATIVE) 03/11/17 21:00 Urine Bilirubin Negative (NEGATIVE) 03/11/17 21:00 Urine Urobilinogen Negative mg/dL (0.2-1.0) 03/11/17 21:00 Ur Leukocyte Esterase Negative (NEGATIVE) 03/11/17 21:00 RPR Titer Nonreactive (NONREACTIVE) 03/12/17 07:30 Assessment: 03/13/17 10:49 WITHDRAWAL SYMPTOM Plan: CONTINUE DETOX
--- NOTE | 2017-03-13 12:57 | PN ---
S Progress Note Note: PATIENT DID NOT WANT TO COMPLETE TREATMENT,DUE TO FAMILY EMERGENCY,SIGNED RELEASE AMA,SEEN BY COUNSELOR
--- NOTE | 2017-03-13 13:00 | DS ---
[facility] Detox Discharge Summary Admission Date: 03/11/17 Discharge Date: 03/13/17 - History Present History: Alcohol Dependence Additional Comments: PATIENT COULD NOT COMPLETE TREATMENT DUE TO FAMILY EMERGENCY,SIGNED RELEASE AMA, SEEN BY COUNSELOR Pertinent Past History: NICOTINE DEPENDENCE BIPOLAR 2 DISORDER - Physical Exam Results Vital Signs: Vital Signs Temperature 98.8 F 03/13/17 10:21 Pulse Rate 74 03/13/17 10:21 Respiratory Rate 16 03/13/17 10:21 Blood Pressure 132/88 03/13/17 10:21 O2 Sat by Pulse Oximetry (%) Pertinent Admission Physical Exam Findings: WITHDRAWAL SYMPTOM AND FINDING - Medication Discharge Medications: Ambulatory Orders Benztropine Mesylate [Cogentin -] 1 mg PO HS #30 tablet 05/28/16 Benztropine Mesylate [Cogentin -] 1 mg PO HS #30 tablet 02/03/17 Haloperidol [Haldol -] 5 mg PO HS #30 tablet 02/03/17 Trazodone HCl [Desyrel -] 100 mg PO HS #30 tablet 02/03/17 - Diagnosis (1) Alcohol dependence with uncomplicated withdrawal Current Visit: Yes Status: Acute (2) Nicotine dependence Current Visit: Yes Status: Acute Qualifiers: Nicotine product type: cigarettes Substance use status: in withdrawal Qualified Code(s): F17.213 - Nicotine dependence, cigarettes, with withdrawal (3) Bipolar II disorder Current Visit: Yes Status: Suspected - AMA Did Patient Leave Against Medical Advice: Yes
--- NOTE | 2017-03-13 17:11 | EKG ---
Test Reason : Blood Pressure : / mmHG Vent. Rate : 087 BPM Atrial Rate : 087 BPM P-R Int : 148 ms QRS Dur : 074 ms QT Int : 380 ms P-R-T Axes : 071 064 049 degrees QTc Int : 457 ms NORMAL SINUS RHYTHM POSSIBLE LEFT ATRIAL ENLARGEMENT BORDERLINE ECG WHEN COMPARED WITH ECG OF 02-FEB-2017 22:27, NO SIGNIFICANT CHANGE WAS FOUND Confirmed by REKHA CARRILLO MD ([id number]) on 03/13/2017 5:11:01 PM Referred By: Confirmed By:REKHA CARRILLO MD
[2017-03-13] MEDS ORDERED: chlordiazePOXIDE 5 MG CAPSULE PO SCH (23:00)
[2017-03-14] MEDS ORDERED: chlordiazePOXIDE HCL 10 MG CAPSULE PO SCH (23:00)
== END 2017-03-13 13:20 | disposition left against medical advice (07) | DRG 894 ==
LOC: YASAS 12:59 → Y6N 20:20
PROVIDERS: ADMIT Internal Medicine; ATTEND Internal Medicine
PROC: HZ2ZZZZ Detoxification Services for Substance Abuse Treatment (ICD-10-PCS; principal; 2017-03-11)
DX: F10.230 Alcohol dependence with withdrawal, uncomplicated (principal); F14.20 Cocaine dependence, uncomplicated; F31.81 Bipolar II disorder; F12.20 Cannabis dependence, uncomplicated; F17.213 Nicotine dependence, cigarettes, with withdrawal; Z91.5 Personal history of self-harm
CPT/HCPCS: 36415; 80053; 81003; 85027; 86593; 93005; 93010

== ENCOUNTER 2017-07-11 12:20 | Inpatient (IN) | payer OTHER ==
[2017-07-11 12:55] VITALS: BMI 28.3
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
[2017-07-11] MEDS ORDERED: hydrOXYzine PAMOATE 50 MG CAPSULE (FP) PO PRN (14:00)
[2017-07-11] MEDS ORDERED: IBUPROFEN 400 MG TABLET (FP) PO PRN (14:00)
[2017-07-11] MEDS ORDERED: chlordiazePOXIDE HCL 25 MG CAPSULE PO PRN (14:00)
[2017-07-11] MEDS ORDERED: P-EPHED 60MG/TRIPROLIDI 2.5MG TABLET PO PRN (14:00)
[2017-07-11] MEDS ORDERED: chlordiazePOXIDE HCL 25 MG CAPSULE PO ONE (14:00)
[2017-07-11] MEDS ORDERED: guaiFENesin/D-METHORPHAN HB 10 ML UNIT-DOSE CUPS PO PRN (14:00)
[2017-07-11] MEDS ORDERED: MENTHOL/PHENOL 1 EACH UD MM PRN (14:00)
[2017-07-11] MEDS ORDERED: MAG HYDROX/AL HYDROX/SIMETH 30 ML UNIT-DOSE CUP PO PRN (14:00)
[2017-07-11] MEDS ORDERED: MAGNESIUM CITRATE 300 ML BOTTLE PO PRN (14:00)
[2017-07-11] MEDS ORDERED: ACETAMINOPHEN 325 MG TABLET (FP) PO PRN (14:00)
[2017-07-11] MEDS ORDERED: LOPERAMIDE HCL 2 MG CAPSULE PO PRN (14:00)
[2017-07-11] MEDS ORDERED: DOXYCYCLINE HYCLATE 100 MG CAPSULE PO SCH (15:00)
[2017-07-11] MEDS: NICOTINE POLACRILEX 2 MG GUM BUC PRN ×2 (15:40→22:08)
[2017-07-11] MEDS: chlordiazePOXIDE HCL 25 MG CAPSULE PO SCH ×2 (17:35→22:06)
[2017-07-11 18:17] LABS: URINE APPEARANCE CLEAR; URINE BILIRUBIN NEGATIVE (<2.0 mg/dL); URINE COLOR STRAW; URINE GLUCOSE (UA) NEGATIVE (NEGATIVE); URINE KETONE NEGATIVE (NEGATIVE); URINE LEUK ESTERASE NEGATIVE (NEGATIVE); URINE NITRITE NEGATIVE (NEGATIVE); URINE PROTEIN NEGATIVE (NEGATIVE); URINE UROBILINOGEN NEGATIVE mg/dL (0.2-1.0)
--- NOTE | 2017-07-11 21:49 | EKG ---
Test Reason : Blood Pressure : / mmHG Vent. Rate : 074 BPM Atrial Rate : 074 BPM P-R Int : 154 ms QRS Dur : 088 ms QT Int : 404 ms P-R-T Axes : 060 062 043 degrees QTc Int : 448 ms NORMAL SINUS RHYTHM NORMAL ECG WHEN COMPARED WITH ECG OF 11-MAR-2017 21:17, NO SIGNIFICANT CHANGE WAS FOUND Confirmed by COCO HATHAWAY MD ([id number]) on 07/11/2017 9:49:07 PM Referred By: Confirmed By:COCO HATHAWAY MD
[2017-07-11] MEDS ORDERED: PATIENT'S OWN MEDICATION (NON-FORMULARY) (Doxycycline Hyclate [Doxycycline Hyclate] 100 MG PO SCH (22:00)
[2017-07-11] MEDS ORDERED: MELATONIN 5 MG TABLETS PO PRN (22:00)
[2017-07-11] MEDS ORDERED: metroNIDAZOLE 500 MG TABLET PO SCH (22:00)
[2017-07-11] MEDS: THIAMINE HCL 100 MG TABLET (FP) PO SCH (22:06)
[2017-07-11] MEDS: PATIENT'S OWN MEDICATION (NON-FORMULARY) (Doxycycline Hyclate [Doxycycline Hyclate] 100 MG PO SCH (22:07)
[2017-07-11] MEDS: METRONIDAZOLE 500 MG PO SCH (22:07)
[2017-07-12] MEDS: chlordiazePOXIDE HCL 25 MG CAPSULE PO SCH ×4 (05:56→22:05)
[2017-07-12] MEDS: NICOTINE POLACRILEX 2 MG GUM BUC PRN ×6 (05:58→22:35)
--- NOTE | 2017-07-12 08:54 | CONSULT ---
[facility] Psychiatric Consult - Data Date of interview: 07/12/17 Admission source: [facility] Identifying data: This is 32/years old female, single , with no children, living in [place], unemployed, with psychiatric hospitalization history, history of Bipolar diusorder, is here seeking for detox due to Alcohol and [place] , Cannabis abuse, reports withdrawal symptoms. Substance Abuse History: Smoking history: Current every day smoker. Have you smoked in the past 12 months: Yes. Aproximately how many cigarettes per day: 10. Cigars Per Day: 0. Hx Chewing Tobacco Use: No. Initiated information on smoking cessation: Yes. 'Breaking Loose' booklet given: 07/11/17. - Substance & Tx. History. Hx Alcohol Use: Yes. Hx Substance Use: Yes. Substance Use Type : Alcohol, Cocaine, Marijuana. Hx Substance Use Treatment: Yes ([facility] 03/11/17 to 03/13/17 not completed). - Substances Abused. Alcohol. Route: Oral. Frequency: Daily. Amount used: 1/2 pint of vodka/6 pack of 12 ozs of beer. Age of first use: 15. Date of Last Use: 07/10/17. Cocaine. Route: Smoking. Frequency: 3-6 times per week. Amount used: 50$. Age of first use: 25. Date of Last Use: 07/09/17. Marijuana/Hashish. Route: Smoking. Frequency: Daily. Amount used: 5$. Age of first use: 15. Date of Last Use: Medical History: History of P-ID, Thyroid enlargement history Psychiatric History: Patient reports history of Bipolar Disorder with most recent psychiatric admission on 1 month ago at [facility]. Patient reports taking prior to admission: Haldol 5mg po bid. Cogentin 1mg po bid. Trazodone 50mg po qhs. Patient reports suicidal history, few suicidal attempts by OD, most rtecent one 3 years ago, no suicidal history since patient taking her medications Physical/Sexual Abuse/Trauma History: Denies Additional Comment: Haldol 5mg po bid. Cogentin 1mg po bid. Trazodone 50mg po qhs Mental Status Exam - Mental Status Exam Alert and Oriented to: Person Cognitive Function: Fair Patient Appearance: Unkempt Mood: Suspicious Affect: Mood Congruent Patient Behavior: Talkative Speech Pattern: Appropriate Voice Loudness: Mildly Soft/Quiet Thought Process: Circumstantial, Goal Oriented Thought Disorder: Being Controlled Hallucinations: Denies Suicidal Ideation: Denies Homicidal Ideation: Denies Insight/Judgement: Fair Sleep: Difficulty falling asleep Appetite: Weight gain Muscle strength/Tone: Normal Gait/Station: Normal Additional Comments: Haldol 5mg po bid. Cogentin 1mg po bid. Trazodone 50mg po qhs Psychiatric Findings - Problem List ([place] 1, 2,3) (1) Alcohol dependence with uncomplicated withdrawal Current Visit: No Status: Acute (2) Nicotine dependence Current Visit: No Status: Acute Qualifiers: Nicotine product type: cigarettes Substance use status: in withdrawal Qualified Code(s): F17.213 - Nicotine dependence, cigarettes, with withdrawal (3) Uncomplicated alcohol dependence Current Visit: No Status: Acute (4) Bipolar disorder Current Visit: No Status: Chronic Comment: Self reports (5) Cannabis dependence, uncomplicated Current Visit: No Status: Chronic (6) Cocaine dependence, uncomplicated Current Visit: No Status: Chronic (7) Bipolar 1 disorder, depressed Current Visit: No Status: Suspected - Initial Treatment Plan Initial Treatment Plan: Haldol 5mg po bid. Cogentin 1mg po bid. Trazodone 50mg po qhs
[2017-07-12 10:00] LABS: HEMATOCRIT 35.6 % (32.4-45.2); HEMOGLOBIN 12.3 GM/dL (10.7-15.3); MCH 31.9 pg (25.7-33.7); MCHC 34.5 g/dl (32.0-36.0); MEAN CELL VOLUME 92.3 fl (80-96); MEAN PLT VOLUME 10.3 fl (7.5-11.1); PLATELET COUNT 163 K/MM3 (134-434); RBC 3.85 M/mm3 (3.60-5.2); RDW 15.3 % (11.6-15.6); WHITE BLOOD COUNT 7.4 K/mm3 (4.0-10.0)
[2017-07-12 10:10] LABS: ANION GAP 4 (8-16); BLOOD UREA NITROGEN 12 mg/dL (7-18); CALCIUM 8.1 mg/dL (8.5-10.1); CHLORIDE 102 mmol/L (98-107); CO2 30 mmol/L (21-32); GLUCOSE,RANDOM 81 mg/dL (74-106); POTASSIUM 3.8 mmol/L (3.5-5.1); SGOT/AST 23 U/L (15-37); SGPT/ALT 12 U/L (12-78); SODIUM 136 mmol/L (136-145)
[2017-07-12 10:12] LABS: ALK PHOS 87 U/L (45-117); BILIRUBIN,TOTAL 0.2 mg/dL (0.2-1.0); CREATININE 0.5 mg/dL (0.55-1.02)
[2017-07-12] MEDS: PATIENT'S OWN MEDICATION (NON-FORMULARY) (Doxycycline Hyclate [Doxycycline Hyclate] 100 MG PO SCH ×2 (10:38→22:05)
[2017-07-12] MEDS: METRONIDAZOLE 500 MG PO SCH ×2 (10:39→22:05)
[2017-07-12] MEDS: PRENATAL VITAMINS W/ FOLIC ACID TABLET (FP) PO SCH (10:39)
--- NOTE | 2017-07-12 12:40 | PN ---
S CIWA - CIWA Score Nausea/Vomitin-Mild Nausea/No Vomiting Muscle Tremors: 4-Moderate,w/Arms Extend Anxiety: 4-Mod. Anxious/Guarded Agitation: 4-Moderately Restless Paroxysmal Sweats: 1-Minimal Palms Moist Orientation: 0-Oriented Tacttile Disturbances: 1-Very Mild Itch/Numbness Auditory Disturbances: 0-None Visual Disturbances: 0-None Headache: 1-Very Mild CIWA-Ar Total Score: 16 BHS Progress Note (SOAP) Subjective: sweat tremor anxiety restlessness Objective: 07/12/17 12:38 Vital Signs Temperature 97.9 F 07/12/17 10:19 Pulse Rate 81 07/12/17 10:19 Respiratory Rate 18 07/12/17 10:19 Blood Pressure 119/75 07/12/17 10:19 O2 Sat by Pulse Oximetry (%) Laboratory Last Values WBC 7.4 K/mm3 (4.0-10.0) D 07/12/17 07:00 RBC 3.85 M/mm3 (3.60-5.2) 07/12/17 07:00 Hgb 12.3 GM/dL (10.7-15.3) 07/12/17 07:00 Hct 35.6 % (32.4-45.2) 07/12/17 07:00 MCV 92.3 fl (80-96) 07/12/17 07:00 MCH 31.9 pg (25.7-33.7) 07/12/17 07:00 MCHC 34.5 g/dl (32.0-36.0) 07/12/17 07:00 RDW 15.3 % (11.6-15.6) 07/12/17 07:00 Plt Count 163 K/MM3 (134-434) D 07/12/17 07:00 MPV 10.3 fl (7.5-11.1) D 07/12/17 07:00 Sodium 136 mmol/L (136-145) 07/12/17 07:00 Potassium 3.8 mmol/L (3.5-5.1) 07/12/17 07:00 Chloride 102 mmol/L (98-107) 07/12/17 07:00 Carbon Dioxide 30 mmol/L (21-32) 07/12/17 07:00 Anion Gap 4 (8-16) L 07/12/17 07:00 BUN 12 mg/dL (7-18) 07/12/17 07:00 Creatinine 0.5 mg/dL (0.55-1.02) L 07/12/17 07:00 Creat Clearance w eGFR > 60 (>60) 07/12/17 07:00 Random Glucose 81 mg/dL (74-106) 07/12/17 07:00 Calcium 8.1 mg/dL (8.5-10.1) L 07/12/17 07:00 Total Bilirubin 0.2 mg/dL (0.2-1.0) D 07/12/17 07:00 AST 23 U/L (15-37) 07/12/17 07:00 ALT 12 U/L (12-78) 07/12/17 07:00 Alkaline Phosphatase 87 U/L (45-117) 07/12/17 07:00 Total Protein 6.0 g/dl (6.4-8.2) L 07/12/17 07:00 Albumin 3.0 g/dl (3.4-5.0) L 07/12/17 07:00 Urine Color Straw 07/11/17 14:00 Urine Appearance Clear 07/11/17 14:00 Urine pH 6.0 (5.0-8.0) 07/11/17 14:00 Ur Specific [place] 1.008 (1.001-1.035) 07/11/17 14:00 Urine Protein Negative (NEGATIVE) 07/11/17 14:00 Urine Glucose (UA) Negative (NEGATIVE) 07/11/17 14:00 Urine Ketones Negative (NEGATIVE) 07/11/17 14:00 Urine Blood Negative (NEGATIVE) 07/11/17 14:00 Urine Nitrite Negative (NEGATIVE) 07/11/17 14:00 Urine Bilirubin Negative (<2.0 mg/dL) 07/11/17 14:00 Urine Urobilinogen Negative mg/dL (0.2-1.0) 07/11/17 14:00 Ur Leukocyte Esterase Negative (NEGATIVE) 07/11/17 14:00 lab noted Assessment: 07/12/17 12:39 withdrawal sx Plan: continue detox
[2017-07-12] MEDS ORDERED: HALOPERIDOL 5 MG TABLET (FP) PO ONE (14:45)
[2017-07-12] MEDS ORDERED: BENZTROPINE MESYLATE 1 MG TABLET (FP) PO ONE (14:45)
[2017-07-12] MEDS: MAGNESIUM HYDROX 2400MG/30ML ORAL SUSPENSION 30 ML CUP PO PRN (20:13)
[2017-07-12] MEDS: THIAMINE HCL 100 MG TABLET (FP) PO SCH (22:05)
[2017-07-12] MEDS: traZODone HCL 50 MG TABLET (FP) PO SCH (22:06)
[2017-07-12] MEDS: HALOPERIDOL 5 MG TABLET (FP) PO SCH (22:06)
[2017-07-12] MEDS: BENZTROPINE MESYLATE 1 MG TABLET (FP) PO SCH (22:06)
[2017-07-13] MEDS: chlordiazePOXIDE HCL 25 MG CAPSULE PO SCH ×2 (05:41→10:11)
[2017-07-13] MEDS: NICOTINE POLACRILEX 2 MG GUM BUC PRN ×3 (05:42→13:58)
[2017-07-13] MEDS: PRENATAL VITAMINS W/ FOLIC ACID TABLET (FP) PO SCH (10:11)
[2017-07-13] MEDS: HALOPERIDOL 5 MG TABLET (FP) PO SCH ×2 (10:11→22:53)
[2017-07-13] MEDS: BENZTROPINE MESYLATE 1 MG TABLET (FP) PO SCH ×2 (10:11→22:53)
[2017-07-13] MEDS: PATIENT'S OWN MEDICATION (NON-FORMULARY) (Doxycycline Hyclate [Doxycycline Hyclate] 100 MG PO SCH ×2 (10:12→22:53)
[2017-07-13] MEDS: METRONIDAZOLE 500 MG PO SCH ×2 (10:12→22:53)
--- NOTE | 2017-07-13 11:40 | PN ---
[facility] CIWA - CIWA Score Nausea/Vomitin-Mild Nausea/No Vomiting Muscle Tremors: 4-Moderate,w/Arms Extend Anxiety: 4-Mod. Anxious/Guarded Agitation: 4-Moderately Restless Paroxysmal Sweats: 1-Minimal Palms Moist Orientation: 0-Oriented Tacttile Disturbances: 1-Very Mild Itch/Numbness Auditory Disturbances: 0-None Visual Disturbances: 0-None Headache: 0-None Present CIWA-Ar Total Score: 15 S Progress Note (SOAP) Subjective: sweat tremor anxiety restlessness trouble sleep at night, gi distress Objective: 07/13/17 11:42 Vital Signs Temperature 97.3 F L 07/13/17 08:58 Pulse Rate 77 07/13/17 08:58 Respiratory Rate 20 07/13/17 08:58 Blood Pressure 95/58 07/13/17 08:58 O2 Sat by Pulse Oximetry (%) Laboratory Last Values WBC 7.4 K/mm3 (4.0-10.0) D 07/12/17 07:00 RBC 3.85 M/mm3 (3.60-5.2) 07/12/17 07:00 Hgb 12.3 GM/dL (10.7-15.3) 07/12/17 07:00 Hct 35.6 % (32.4-45.2) 07/12/17 07:00 MCV 92.3 fl (80-96) 07/12/17 07:00 MCH 31.9 pg (25.7-33.7) 07/12/17 07:00 MCHC 34.5 g/dl (32.0-36.0) 07/12/17 07:00 RDW 15.3 % (11.6-15.6) 07/12/17 07:00 Plt Count 163 K/MM3 (134-434) D 07/12/17 07:00 MPV 10.3 fl (7.5-11.1) D 07/12/17 07:00 Sodium 136 mmol/L (136-145) 07/12/17 07:00 Potassium 3.8 mmol/L (3.5-5.1) 07/12/17 07:00 Chloride 102 mmol/L (98-107) 07/12/17 07:00 Carbon Dioxide 30 mmol/L (21-32) 07/12/17 07:00 Anion Gap 4 (8-16) L 07/12/17 07:00 BUN 12 mg/dL (7-18) 07/12/17 07:00 Creatinine 0.5 mg/dL (0.55-1.02) L 07/12/17 07:00 Creat Clearance w eGFR > 60 (>60) 07/12/17 07:00 Random Glucose 81 mg/dL (74-106) 07/12/17 07:00 Calcium 8.1 mg/dL (8.5-10.1) L 07/12/17 07:00 Total Bilirubin 0.2 mg/dL (0.2-1.0) D 07/12/17 07:00 AST 23 U/L (15-37) 07/12/17 07:00 ALT 12 U/L (12-78) 07/12/17 07:00 Alkaline Phosphatase 87 U/L (45-117) 07/12/17 07:00 Total Protein 6.0 g/dl (6.4-8.2) L 07/12/17 07:00 Albumin 3.0 g/dl (3.4-5.0) L 07/12/17 07:00 Urine Color Straw 07/11/17 14:00 Urine Appearance Clear 07/11/17 14:00 Urine pH 6.0 (5.0-8.0) 07/11/17 14:00 Ur Specific [place] 1.008 (1.001-1.035) 07/11/17 14:00 Urine Protein Negative (NEGATIVE) 07/11/17 14:00 Urine Glucose (UA) Negative (NEGATIVE) 07/11/17 14:00 Urine Ketones Negative (NEGATIVE) 07/11/17 14:00 Urine Blood Negative (NEGATIVE) 07/11/17 14:00 Urine Nitrite Negative (NEGATIVE) 07/11/17 14:00 Urine Bilirubin Negative (<2.0 mg/dL) 07/11/17 14:00 Urine Urobilinogen Negative mg/dL (0.2-1.0) 07/11/17 14:00 Ur Leukocyte Esterase Negative (NEGATIVE) 07/11/17 14:00 RPR Titer Nonreactive (NONREACTIVE) 07/12/17 07:00 lab noted Assessment: 07/13/17 11:42 withdrawal sx Plan: continue detox
[2017-07-13] MEDS: chlordiazePOXIDE 5 MG CAPSULE PO SCH ×2 (16:34→22:54)
[2017-07-13] MEDS: THIAMINE HCL 100 MG TABLET (FP) PO SCH (22:53)
[2017-07-13] MEDS: traZODone HCL 50 MG TABLET (FP) PO SCH (22:53)
[2017-07-14] MEDS: chlordiazePOXIDE 5 MG CAPSULE PO SCH ×2 (05:26→11:32)
[2017-07-14] MEDS: NICOTINE POLACRILEX 2 MG GUM BUC PRN ×5 (05:29→22:07)
[2017-07-14] MEDS: PRENATAL VITAMINS W/ FOLIC ACID TABLET (FP) PO SCH (10:35)
[2017-07-14] MEDS: PATIENT'S OWN MEDICATION (NON-FORMULARY) (Doxycycline Hyclate [Doxycycline Hyclate] 100 MG PO SCH ×2 (10:35→22:07)
[2017-07-14] MEDS: METRONIDAZOLE 500 MG PO SCH ×2 (10:35→22:06)
[2017-07-14] MEDS: HALOPERIDOL 5 MG TABLET (FP) PO SCH ×2 (10:35→22:07)
[2017-07-14] MEDS: BENZTROPINE MESYLATE 1 MG TABLET (FP) PO SCH ×2 (10:37→22:06)
[2017-07-14] MEDS: MAGNESIUM HYDROX 2400MG/30ML ORAL SUSPENSION 30 ML CUP PO PRN (11:34)
--- NOTE | 2017-07-14 11:35 | PN ---
BHS Progress Note (SOAP) Subjective: sweat tremor gi distress trouble sleep at night anxiety restlessness c/o constipation Objective: 07/14/17 11:34 Vital Signs Temperature 97.5 F L 07/14/17 10:21 Pulse Rate 81 07/14/17 10:21 Respiratory Rate 18 07/14/17 10:21 Blood Pressure 103/69 07/14/17 10:21 O2 Sat by Pulse Oximetry (%) Laboratory Last Values WBC 7.4 K/mm3 (4.0-10.0) D 07/12/17 07:00 RBC 3.85 M/mm3 (3.60-5.2) 07/12/17 07:00 Hgb 12.3 GM/dL (10.7-15.3) 07/12/17 07:00 Hct 35.6 % (32.4-45.2) 07/12/17 07:00 MCV 92.3 fl (80-96) 07/12/17 07:00 MCH 31.9 pg (25.7-33.7) 07/12/17 07:00 MCHC 34.5 g/dl (32.0-36.0) 07/12/17 07:00 RDW 15.3 % (11.6-15.6) 07/12/17 07:00 Plt Count 163 K/MM3 (134-434) D 07/12/17 07:00 MPV 10.3 fl (7.5-11.1) D 07/12/17 07:00 Sodium 136 mmol/L (136-145) 07/12/17 07:00 Potassium 3.8 mmol/L (3.5-5.1) 07/12/17 07:00 Chloride 102 mmol/L (98-107) 07/12/17 07:00 Carbon Dioxide 30 mmol/L (21-32) 07/12/17 07:00 Anion Gap 4 (8-16) L 07/12/17 07:00 BUN 12 mg/dL (7-18) 07/12/17 07:00 Creatinine 0.5 mg/dL (0.55-1.02) L 07/12/17 07:00 Creat Clearance w eGFR > 60 (>60) 07/12/17 07:00 Random Glucose 81 mg/dL (74-106) 07/12/17 07:00 Calcium 8.1 mg/dL (8.5-10.1) L 07/12/17 07:00 Total Bilirubin 0.2 mg/dL (0.2-1.0) D 07/12/17 07:00 AST 23 U/L (15-37) 07/12/17 07:00 ALT 12 U/L (12-78) 07/12/17 07:00 Alkaline Phosphatase 87 U/L (45-117) 07/12/17 07:00 Total Protein 6.0 g/dl (6.4-8.2) L 07/12/17 07:00 Albumin 3.0 g/dl (3.4-5.0) L 07/12/17 07:00 Urine Color Straw 07/11/17 14:00 Urine Appearance Clear 07/11/17 14:00 Urine pH 6.0 (5.0-8.0) 07/11/17 14:00 Ur Specific [place] 1.008 (1.001-1.035) 07/11/17 14:00 Urine Protein Negative (NEGATIVE) 07/11/17 14:00 Urine Glucose (UA) Negative (NEGATIVE) 07/11/17 14:00 Urine Ketones Negative (NEGATIVE) 07/11/17 14:00 Urine Blood Negative (NEGATIVE) 07/11/17 14:00 Urine Nitrite Negative (NEGATIVE) 07/11/17 14:00 Urine Bilirubin Negative (<2.0 mg/dL) 07/11/17 14:00 Urine Urobilinogen Negative mg/dL (0.2-1.0) 07/11/17 14:00 Ur Leukocyte Esterase Negative (NEGATIVE) 07/11/17 14:00 RPR Titer Nonreactive (NONREACTIVE) 07/12/17 07:00 lab noted Assessment: 07/14/17 11:34 withdrawal sx Plan: continue detox [place]
[2017-07-14] MEDS ORDERED: SODIUM PHOSPHATE/NA BIPHOS 133 ML ENEMA PR ONE (12:00)
[2017-07-14] MEDS ORDERED: BACITRACIN 0.9 GM PACKET TP ONE (12:00)
[2017-07-14] MEDS: chlordiazePOXIDE HCL 10 MG CAPSULE PO SCH ×2 (17:07→22:09)
[2017-07-14] MEDS: traZODone HCL 50 MG TABLET (FP) PO SCH (22:06)
[2017-07-14] MEDS: THIAMINE HCL 100 MG TABLET (FP) PO SCH (22:07)
[2017-07-15] MEDS: chlordiazePOXIDE HCL 10 MG CAPSULE PO SCH ×2 (06:29→10:12)
[2017-07-15] MEDS: NICOTINE POLACRILEX 2 MG GUM BUC PRN ×2 (06:30→10:16)
[2017-07-15] MEDS: HALOPERIDOL 5 MG TABLET (FP) PO SCH (10:12)
[2017-07-15] MEDS: PRENATAL VITAMINS W/ FOLIC ACID TABLET (FP) PO SCH (10:12)
[2017-07-15] MEDS: BENZTROPINE MESYLATE 1 MG TABLET (FP) PO SCH (10:12)
[2017-07-15] MEDS: METRONIDAZOLE 500 MG PO SCH (10:13)
[2017-07-15] MEDS: PATIENT'S OWN MEDICATION (NON-FORMULARY) (Doxycycline Hyclate [Doxycycline Hyclate] 100 MG PO SCH (10:13)
[2017-07-15 10:21] VITALS: TEMP 98.1
[2017-07-15] MEDS: MAGNESIUM HYDROX 2400MG/30ML ORAL SUSPENSION 30 ML CUP PO PRN (10:21)
--- NOTE | 2017-07-15 10:36 | PN ---
BHS Progress Note (SOAP) Subjective: feeling little better able to tolerate food and fluid well today no tremor less sweat Objective: 07/15/17 10:37 Vital Signs Temperature 98.1 F 07/15/17 10:20 Pulse Rate 84 07/15/17 10:20 Respiratory Rate 16 07/15/17 10:20 Blood Pressure 104/65 07/15/17 10:20 O2 Sat by Pulse Oximetry (%) Laboratory Last Values WBC 7.4 K/mm3 (4.0-10.0) D 07/12/17 07:00 RBC 3.85 M/mm3 (3.60-5.2) 07/12/17 07:00 Hgb 12.3 GM/dL (10.7-15.3) 07/12/17 07:00 Hct 35.6 % (32.4-45.2) 07/12/17 07:00 MCV 92.3 fl (80-96) 07/12/17 07:00 MCH 31.9 pg (25.7-33.7) 07/12/17 07:00 MCHC 34.5 g/dl (32.0-36.0) 07/12/17 07:00 RDW 15.3 % (11.6-15.6) 07/12/17 07:00 Plt Count 163 K/MM3 (134-434) D 07/12/17 07:00 MPV 10.3 fl (7.5-11.1) D 07/12/17 07:00 Sodium 136 mmol/L (136-145) 07/12/17 07:00 Potassium 3.8 mmol/L (3.5-5.1) 07/12/17 07:00 Chloride 102 mmol/L (98-107) 07/12/17 07:00 Carbon Dioxide 30 mmol/L (21-32) 07/12/17 07:00 Anion Gap 4 (8-16) L 07/12/17 07:00 BUN 12 mg/dL (7-18) 07/12/17 07:00 Creatinine 0.5 mg/dL (0.55-1.02) L 07/12/17 07:00 Creat Clearance w eGFR > 60 (>60) 07/12/17 07:00 Random Glucose 81 mg/dL (74-106) 07/12/17 07:00 Calcium 8.1 mg/dL (8.5-10.1) L 07/12/17 07:00 Total Bilirubin 0.2 mg/dL (0.2-1.0) D 07/12/17 07:00 AST 23 U/L (15-37) 07/12/17 07:00 ALT 12 U/L (12-78) 07/12/17 07:00 Alkaline Phosphatase 87 U/L (45-117) 07/12/17 07:00 Total Protein 6.0 g/dl (6.4-8.2) L 07/12/17 07:00 Albumin 3.0 g/dl (3.4-5.0) L 07/12/17 07:00 Urine Color Straw 07/11/17 14:00 Urine Appearance Clear 07/11/17 14:00 Urine pH 6.0 (5.0-8.0) 07/11/17 14:00 Ur Specific [place] 1.008 (1.001-1.035) 07/11/17 14:00 Urine Protein Negative (NEGATIVE) 07/11/17 14:00 Urine Glucose (UA) Negative (NEGATIVE) 07/11/17 14:00 Urine Ketones Negative (NEGATIVE) 07/11/17 14:00 Urine Blood Negative (NEGATIVE) 07/11/17 14:00 Urine Nitrite Negative (NEGATIVE) 07/11/17 14:00 Urine Bilirubin Negative (<2.0 mg/dL) 07/11/17 14:00 Urine Urobilinogen Negative mg/dL (0.2-1.0) 07/11/17 14:00 Ur Leukocyte Esterase Negative (NEGATIVE) 07/11/17 14:00 RPR Titer Nonreactive (NONREACTIVE) 07/12/17 07:00 lab ntoed Assessment: 07/15/17 10:38 mild withdrawal sx Plan: medically supervised detox patient can be discharged 07/16/17 patient has appointment with [facility] specialist 07/16/17 encourage the patient from [facility] to follow up with the appointment made
--- NOTE | 2017-07-15 14:06 | DS ---
[facility] Detox Discharge Summary Admission Date: 07/11/17 Discharge Date: 07/15/17 - History Present History: Alcohol Dependence Additional Comments: 32 years old female admitted on 07/11/17 for alcohol withdrawal sx completed alcohol regimen tolerated well patient denies alcohol withdrawal sx patient wants to return to the community today and follow up with [facility] for mental health medical and addiction issues patient is alert oriented x 3 no acute distress - Physical Exam Results Vital Signs: Vital Signs Temperature 98.1 F 07/15/17 10:20 Pulse Rate 84 07/15/17 10:20 Respiratory Rate 16 07/15/17 10:20 Blood Pressure 104/65 07/15/17 10:20 O2 Sat by Pulse Oximetry (%) Pertinent Admission Physical Exam Findings: Vital Signs Temperature 98.1 F 07/15/17 10:20 Pulse Rate 84 07/15/17 10:20 Respiratory Rate 16 07/15/17 10:20 Blood Pressure 104/65 07/15/17 10:20 O2 Sat by Pulse Oximetry (%) Laboratory Last Values WBC 7.4 K/mm3 (4.0-10.0) D 07/12/17 07:00 RBC 3.85 M/mm3 (3.60-5.2) 07/12/17 07:00 Hgb 12.3 GM/dL (10.7-15.3) 07/12/17 07:00 Hct 35.6 % (32.4-45.2) 07/12/17 07:00 MCV 92.3 fl (80-96) 07/12/17 07:00 MCH 31.9 pg (25.7-33.7) 07/12/17 07:00 MCHC 34.5 g/dl (32.0-36.0) 07/12/17 07:00 RDW 15.3 % (11.6-15.6) 07/12/17 07:00 Plt Count 163 K/MM3 (134-434) D 07/12/17 07:00 MPV 10.3 fl (7.5-11.1) D 07/12/17 07:00 Sodium 136 mmol/L (136-145) 07/12/17 07:00 Potassium 3.8 mmol/L (3.5-5.1) 07/12/17 07:00 Chloride 102 mmol/L (98-107) 07/12/17 07:00 Carbon Dioxide 30 mmol/L (21-32) 07/12/17 07:00 Anion Gap 4 (8-16) L 07/12/17 07:00 BUN 12 mg/dL (7-18) 07/12/17 07:00 Creatinine 0.5 mg/dL (0.55-1.02) L 07/12/17 07:00 Creat Clearance w eGFR > 60 (>60) 07/12/17 07:00 Random Glucose 81 mg/dL (74-106) 07/12/17 07:00 Calcium 8.1 mg/dL (8.5-10.1) L 07/12/17 07:00 Total Bilirubin 0.2 mg/dL (0.2-1.0) D 07/12/17 07:00 AST 23 U/L (15-37) 07/12/17 07:00 ALT 12 U/L (12-78) 07/12/17 07:00 Alkaline Phosphatase 87 U/L (45-117) 07/12/17 07:00 Total Protein 6.0 g/dl (6.4-8.2) L 07/12/17 07:00 Albumin 3.0 g/dl (3.4-5.0) L 07/12/17 07:00 Urine Color Straw 07/11/17 14:00 Urine Appearance Clear 07/11/17 14:00 Urine pH 6.0 (5.0-8.0) 07/11/17 14:00 Ur Specific [place] 1.008 (1.001-1.035) 07/11/17 14:00 Urine Protein Negative (NEGATIVE) 07/11/17 14:00 Urine Glucose (UA) Negative (NEGATIVE) 07/11/17 14:00 Urine Ketones Negative (NEGATIVE) 07/11/17 14:00 Urine Blood Negative (NEGATIVE) 07/11/17 14:00 Urine Nitrite Negative (NEGATIVE) 07/11/17 14:00 Urine Bilirubin Negative (<2.0 mg/dL) 07/11/17 14:00 Urine Urobilinogen Negative mg/dL (0.2-1.0) 07/11/17 14:00 Ur Leukocyte Esterase Negative (NEGATIVE) 07/11/17 14:00 RPR Titer Nonreactive (NONREACTIVE) 07/12/17 07:00 lab noted - Treatment Hospital Course: Detox Protocol Followed, Detoxed Safely, Responded well, Discharged Condition Good, Rehab Referral Accepted Patient has Accepted a Re[facility] Referral to: [facility] - Medication Discharge Medications: Ambulatory Orders metroNIDAZOLE [Metronidazole] 500 mg PO BID 07/11/17 Benztropine Mesylate [Cogentin -] 1 mg PO BID #60 tablet 07/12/17 Benztropine Mesylate [Cogentin -] 1 mg PO BID #60 tablet 07/12/17 Haloperidol [Haldol -] 5 mg PO BID #60 tablet 07/12/17 Haloperidol [Haldol -] 5 mg PO BID #60 tablet 07/12/17 traZODone HCL [Desyrel -] 50 mg PO HS #30 tablet 07/12/17 traZODone HCL [Desyrel -] 50 mg PO HS #30 tablet 07/12/17 Doxycycline Hyclate 100 mg PO BID #10 capsule 07/15/17 - Diagnosis (1) History of PID Current Visit: Yes Status: Resolved (2) Alcohol dependence with uncomplicated withdrawal Current Visit: Yes Status: Acute (3) Nicotine dependence Current Visit: Yes Status: Acute Qualifiers: Nicotine product type: cigarettes Substance use status: in withdrawal Qualified Code(s): F17.213 - Nicotine dependence, cigarettes, with withdrawal (4) Bipolar II disorder Current Visit: Yes Status: Suspected - AMA Did Patient Leave Against Medical Advice: No
[2017-07-15 14:58] VITALS: BP 114/75; PULSE 79
== END 2017-07-15 14:03 | disposition home or self-care (01) | DRG 897 ==
LOC: YASAS 12:20 → Y6N 14:57
PROVIDERS: ADMIT Internal Medicine; ATTEND Internal Medicine
PROC: HZ2ZZZZ Detoxification Services for Substance Abuse Treatment (ICD-10-PCS; principal; 2017-07-11)
DX: F10.230 Alcohol dependence with withdrawal, uncomplicated (principal); F14.20 Cocaine dependence, uncomplicated; F31.81 Bipolar II disorder; F12.20 Cannabis dependence, uncomplicated; F17.213 Nicotine dependence, cigarettes, with withdrawal; E04.9 Nontoxic goiter, unspecified; Z91.5 Personal history of self-harm
CPT/HCPCS: 36415; 80053; 81003; 85027; 86593; 93005; 93010

== ENCOUNTER 2018-03-14 21:06 | Inpatient (IN) | payer OTHER ==
[2018-03-14] MEDS ORDERED: MELATONIN 5 MG TABLETS PO PRN (22:00)
[2018-03-14 22:06] VITALS: BMI 29.4
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
[2018-03-14] MEDS ORDERED: P-EPHED 60MG/TRIPROLIDI 2.5MG TABLET PO PRN (23:00)
[2018-03-14] MEDS ORDERED: MENTHOL/PHENOL 1 EACH UD MM PRN (23:00)
[2018-03-14] MEDS ORDERED: chlordiazePOXIDE HCL 25 MG CAPSULE PO PRN (23:00)
[2018-03-14] MEDS ORDERED: guaiFENesin/D-METHORPHAN HB 10 ML UNIT-DOSE CUPS PO PRN (23:00)
[2018-03-14] MEDS ORDERED: MAG HYDROX/AL HYDROX/SIMETH 30 ML UNIT-DOSE CUP PO PRN (23:00)
[2018-03-14] MEDS ORDERED: LOPERAMIDE HCL 2 MG CAPSULE PO PRN (23:00)
[2018-03-14] MEDS: chlordiazePOXIDE HCL 25 MG CAPSULE PO SCH (23:42)
[2018-03-15] MEDS: chlordiazePOXIDE HCL 25 MG CAPSULE PO SCH ×4 (06:22→22:26)
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
[2018-03-15] MEDS ORDERED: BENZTROPINE MESYLATE 1 MG TABLET (FP) PO SCH (10:00)
[2018-03-15] MEDS ORDERED: HALOPERIDOL 5 MG TABLET (FP) PO SCH (10:00)
[2018-03-15] MEDS: NICOTINE 14 MG/24 HOURS TOPICAL PATCH TD SCH (10:40)
[2018-03-15] MEDS: NICOTINE POLACRILEX 2 MG GUM BC PRN ×2 (10:40→15:54)
[2018-03-15] MEDS: PRENATAL VITAMINS W/ FOLIC ACID TABLET (FP) PO SCH (10:40)
[2018-03-15 11:27] LABS: ALBUMIN 3.3 g/dl (3.4-5.0); ALK PHOS 113 U/L (45-117); ANION GAP 8 MMOL/L (8-16); BILIRUBIN,TOTAL 0.5 mg/dL (0.2-1); BLOOD UREA NITROGEN 14 mg/dL (7-18); CALCIUM 8.3 mg/dL (8.5-10.1); CHLORIDE 102 mmol/L (98-107); CO2 27 mmol/L (21-32); CREATININE 0.6 mg/dL (0.55-1.3); GLUCOSE,RANDOM 83 mg/dL (74-106); POTASSIUM 4.3 mmol/L (3.5-5.1); SGOT/AST 39 U/L (15-37); SGPT/ALT 21 U/L (13-61); SODIUM 136 mmol/L (136-145); TOT PROT 7.2 g/dl (6.4-8.2)
[2018-03-15 11:45] LABS: HEMATOCRIT 39.2 % (32.4-45.2); HEMOGLOBIN 13.2 GM/dL (10.7-15.3); MCH 30.8 pg (25.7-33.7); MCHC 33.7 g/dl (32.0-36.0); MEAN CELL VOLUME 91.4 fl (80-96); MEAN PLT VOLUME 9.8 fl (7.5-11.1); PLATELET COUNT 236 K/MM3 (134-434); RBC 4.29 M/mm3 (3.60-5.2); RDW 15.6 % (11.6-15.6); WHITE BLOOD COUNT 5.6 K/mm3 (4.0-10.0)
--- NOTE | 2018-03-15 12:45 | PN ---
S CIWA - CIWA Score Nausea/Vomitin-No Nausea/No Vomiting Muscle Tremors: 4-Moderate,w/Arms Extend Anxiety: 4-Mod. Anxious/Guarded Agitation: 4-Moderately Restless Paroxysmal Sweats: 3 Orientation: 0-Oriented Tacttile Disturbances: 0-None Auditory Disturbances: 0-None Visual Disturbances: 0-None Headache: 0-None Present CIWA-Ar Total Score: 15 BHS Progress Note (SOAP) Subjective: ear wax sweats shakes interrupted sleep Objective: 03/15/18 12:44 Vital Signs Temperature 98.8 F 03/15/18 09:25 Pulse Rate 88 03/15/18 09:25 Respiratory Rate 18 03/15/18 09:25 Blood Pressure 126/82 03/15/18 09:25 O2 Sat by Pulse Oximetry (%) Laboratory Tests 03/15/18 03/15/18 03/15/18 07:00 07:00 07:00 WBC 5.6 RBC 4.29 Hgb 13.2 Hct 39.2 MCV 91.4 MCH 30.8 MCHC 33.7 RDW 15.6 Plt Count 236 D MPV 9.8 Sodium 136 Potassium 4.3 Chloride 102 Carbon Dioxide 27 Anion Gap 8 BUN 14 Creatinine 0.6 Creat Clearance w eGFR > 60 Random Glucose 83 Calcium 8.3 L Total Bilirubin 0.5 AST 39 H ALT 21 Alkaline Phosphatase 113 Total Protein 7.2 Albumin 3.3 L RPR Titer Nonreactive aaox3 ambulating no acute distress Assessment: 03/15/18 12:45 withdrawal sx Plan: continue detox increase fluids debrox ordered bid
[2018-03-15] MEDS: CARBAMIDE PEROXIDE 6.5% OTIC 15 ML BOTTLE AU SCH ×2 (14:42→22:27)
[2018-03-15] MEDS: HALOPERIDOL 5 MG TABLET (FP) PO SCH (22:26)
[2018-03-15] MEDS: BENZTROPINE MESYLATE 1 MG TABLET (FP) PO SCH (22:26)
[2018-03-15] MEDS: THIAMINE HCL 100 MG TABLET (FP) PO SCH (22:26)
[2018-03-16] MEDS: chlordiazePOXIDE HCL 25 MG CAPSULE PO SCH ×3 (06:09→17:23)
[2018-03-16] MEDS: NICOTINE POLACRILEX 2 MG GUM BC PRN ×3 (06:12→12:32)
[2018-03-16] MEDS: PRENATAL VITAMINS W/ FOLIC ACID TABLET (FP) PO SCH (10:16)
[2018-03-16] MEDS: NICOTINE 14 MG/24 HOURS TOPICAL PATCH TD SCH (10:16)
[2018-03-16] MEDS: CARBAMIDE PEROXIDE 6.5% OTIC 15 ML BOTTLE AU SCH ×2 (10:16→22:41)
--- NOTE | 2018-03-16 14:02 | PN ---
[facility] CIWA - CIWA Score Nausea/Vomitin-No Nausea/No Vomiting Muscle Tremors: 3 Anxiety: 3 Agitation: 3 Paroxysmal Sweats: 2 Orientation: 0-Oriented Tacttile Disturbances: 0-None Auditory Disturbances: 0-None Visual Disturbances: 0-None Headache: 0-None Present CIWA-Ar Total Score: 11 S Progress Note (SOAP) Subjective: sweats anxiety Objective: 03/16/18 14:02 Vital Signs Temperature 99.1 F 03/16/18 13:56 Pulse Rate 93 H 03/16/18 13:56 Respiratory Rate 18 03/16/18 13:56 Blood Pressure 119/79 03/16/18 13:56 O2 Sat by Pulse Oximetry (%) Laboratory Tests 03/15/18 03/15/18 03/15/18 07:00 07:00 07:00 WBC 5.6 RBC 4.29 Hgb 13.2 Hct 39.2 MCV 91.4 MCH 30.8 MCHC 33.7 RDW 15.6 Plt Count 236 D MPV 9.8 Sodium 136 Potassium 4.3 Chloride 102 Carbon Dioxide 27 Anion Gap 8 BUN 14 Creatinine 0.6 Creat Clearance w eGFR > 60 Random Glucose 83 Calcium 8.3 L Total Bilirubin 0.5 AST 39 H ALT 21 Alkaline Phosphatase 113 Total Protein 7.2 Albumin 3.3 L RPR Titer Nonreactive aaox3 ambulating no acute distress Assessment: 03/16/18 14:02 withdrawal sx Plan: continue detox increase fluids
[2018-03-16] MEDS: BENZTROPINE MESYLATE 1 MG TABLET (FP) PO SCH (22:41)
[2018-03-16] MEDS: THIAMINE HCL 100 MG TABLET (FP) PO SCH (22:42)
[2018-03-16] MEDS: HALOPERIDOL 5 MG TABLET (FP) PO SCH (22:42)
[2018-03-16] MEDS: chlordiazePOXIDE 5 MG CAPSULE PO SCH (22:43)
[2018-03-17] MEDS: chlordiazePOXIDE 5 MG CAPSULE PO SCH ×2 (06:00→11:50)
[2018-03-17] MEDS: NICOTINE POLACRILEX 2 MG GUM BC PRN ×2 (06:02→17:27)
[2018-03-17] MEDS: NICOTINE 14 MG/24 HOURS TOPICAL PATCH TD SCH (10:40)
[2018-03-17] MEDS: PRENATAL VITAMINS W/ FOLIC ACID TABLET (FP) PO SCH (10:41)
[2018-03-17] MEDS: CARBAMIDE PEROXIDE 6.5% OTIC 15 ML BOTTLE AU SCH ×2 (11:51→21:50)
--- NOTE | 2018-03-17 13:12 | PN ---
S Progress Note (SOAP) Subjective: Patient reports mild sweating, Denies any other Withdrawal / Detox symptoms at this time. Objective: 03/17/18 13:09 Vital Signs Temperature 98.2 F 03/17/18 09:36 Pulse Rate 76 03/17/18 09:36 Respiratory Rate 18 03/17/18 09:36 Blood Pressure 106/71 03/17/18 09:36 O2 Sat by Pulse Oximetry (%) Laboratory Tests 03/15/18 03/15/18 03/15/18 07:00 07:00 07:00 WBC 5.6 RBC 4.29 Hgb 13.2 Hct 39.2 MCV 91.4 MCH 30.8 MCHC 33.7 RDW 15.6 Plt Count 236 D MPV 9.8 Sodium 136 Potassium 4.3 Chloride 102 Carbon Dioxide 27 Anion Gap 8 BUN 14 Creatinine 0.6 Creat Clearance w eGFR > 60 Random Glucose 83 Calcium 8.3 L Total Bilirubin 0.5 AST 39 H ALT 21 Alkaline Phosphatase 113 Total Protein 7.2 Albumin 3.3 L RPR Titer Nonreactive LABS NOTED. Assessment: 03/17/18 13:09 WITHDRAWAL SYMPTOMS. Plan: BED IS AVAILABLE AT [facility] ([place], [place]) TODAY, PATIENT EXPRESSES INTEREST IN GOING ON TO REHAB TODAY.
--- NOTE | 2018-03-17 13:16 | DS ---
[facility] Detox Discharge Summary Admission Date: 03/14/18 Discharge Date: 03/17/18 - History Present History: Alcohol Dependence, Cannabis Dependence, Cocaine Dependence Additional Comments: AT TIME OF DISCHARGE FROM DETOX UNIT, PATIENT REPORTS THAT SHE FEELS WELL OVERALL. PATIENT GOING TO [facility] ([place], [place]) FOR AFTERCARE. PATIENT WAS DISCHARGED FROM DETOX UNIT TO BE TAKEN OVER TO REHAB UNIT IN STABLE MEDICAL CONDITION. Pertinent Past History: History of Depression, History of Schizophrenia, Bipolar Disorder, Nicotine Dependence. - Physical Exam Results Vital Signs: Vital Signs Temperature 98.2 F 03/17/18 09:36 Pulse Rate 76 03/17/18 09:36 Respiratory Rate 18 03/17/18 09:36 Blood Pressure 106/71 03/17/18 09:36 O2 Sat by Pulse Oximetry (%) Pertinent Admission Physical Exam Findings: WITHDRAWAL SYMPTOMS. Laboratory Tests 03/15/18 03/15/18 03/15/18 07:00 07:00 07:00 WBC 5.6 RBC 4.29 Hgb 13.2 Hct 39.2 MCV 91.4 MCH 30.8 MCHC 33.7 RDW 15.6 Plt Count 236 D MPV 9.8 Sodium 136 Potassium 4.3 Chloride 102 Carbon Dioxide 27 Anion Gap 8 BUN 14 Creatinine 0.6 Creat Clearance w eGFR > 60 Random Glucose 83 Calcium 8.3 L Total Bilirubin 0.5 AST 39 H ALT 21 Alkaline Phosphatase 113 Total Protein 7.2 Albumin 3.3 L RPR Titer Nonreactive LABS NOTED. - Treatment Hospital Course: Detox Protocol Followed, Detoxed Safely, Responded well, Discharged Condition Good, Rehab Referral Accepted Patient has Accepted a Rehab Referral to: [facility] ([place], [place]). - Medication Discharge Medications: Ambulatory Orders Benztropine Mesylate [Cogentin -] 1 mg PO BID #60 tablet 07/12/17 Haloperidol [Haldol -] 5 mg PO BID #60 tablet 07/12/17 traZODone HCL [Desyrel -] 50 mg PO HS #30 tablet 07/12/17 - Diagnosis (1) Alcohol dependence with uncomplicated withdrawal Current Visit: Yes Status: Acute (2) Marijuana dependence Current Visit: Yes Status: Acute (3) Bipolar disorder Current Visit: Yes Status: Chronic Qualifiers: Active/Remission status: remission status unspecified Qualified Code(s): F31.9 - Bipolar disorder, unspecified (4) Cocaine dependence, uncomplicated Current Visit: Yes Status: Chronic (5) Nicotine dependence Current Visit: Yes Status: Chronic Qualifiers: Nicotine product type: cigarettes Substance use status: uncomplicated Qualified Code(s): F17.210 - Nicotine dependence, cigarettes, uncomplicated - AMA Did Patient Leave Against Medical Advice: No
--- NOTE | 2018-03-17 13:44 | HP ---
[facility] Rehab Assess/Revision - Admission History Admitted to Rehab from: [facility] Date of Admission to Rehab: 03/17/2018 - Vital signs Vital Signs: Vital Signs Period Temp Pulse Resp BP Sys/Reynolds Pulse Ox Last 24 Hr 98.1 F-99.1 F 73-93 16-18 100-119/68-79 - Findings Detox History & Physical reviewed: Yes Concur with findings: Yes Comments/Additional Findings: PATIENT'S MEDICAL / MEDICATION HISTORY REVIEWED PRIOR TO DISCHARGE FROM DETOX UNIT. PATIENT WAS DISCHARGED FROM DETOX UNIT TO BE TAKEN TO REHAB UNIT IN STABLE MEDICAL CONDITION. Inpatient Rehab Admission - Initial Determination Are CD services needed?: Yes Free of communicable disease: Yes Not in need of hospitalization: Yes - Rehab Admission Criteria Previous failed treatment: Yes Comorbidities: Yes Patient is meeting Inpatient Rehab admission criteria:: Yes
[2018-03-17] MEDS: MAGNESIUM HYDROX 2400MG/30ML ORAL SUSPENSION 30 ML CUP PO PRN (17:04)
[2018-03-17] MEDS: THIAMINE HCL 100 MG TABLET (FP) PO SCH (21:18)
[2018-03-17] MEDS: BENZTROPINE MESYLATE 1 MG TABLET (FP) PO SCH (21:18)
[2018-03-17] MEDS: HALOPERIDOL 5 MG TABLET (FP) PO SCH (21:18)
[2018-03-17] MEDS ORDERED: chlordiazePOXIDE HCL 10 MG CAPSULE PO SCH (23:00)
[2018-03-17] MEDS: IBUPROFEN 400 MG TABLET (FP) PO PRN (23:34)
[2018-03-18] MEDS: NICOTINE POLACRILEX 2 MG GUM BC PRN ×3 (08:20→21:20)
[2018-03-18] MEDS ORDERED: PT OWN MED DRAWER 7, Y5N ONE ×2 (08:58→19:56)
[2018-03-18] MEDS: CARBAMIDE PEROXIDE 6.5% OTIC 15 ML BOTTLE AU SCH ×2 (09:59→21:19)
[2018-03-18] MEDS: PRENATAL VITAMINS W/ FOLIC ACID TABLET (FP) PO SCH (09:59)
[2018-03-18] MEDS: NICOTINE 14 MG/24 HOURS TOPICAL PATCH TD SCH (10:00)
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
[2018-03-18] MEDS ORDERED: COLLOIDAL OATMEAL 1 BAR EACH TP PRN (10:21)
--- NOTE | 2018-03-18 11:35 | PN ---
S Progress Note Note: PATIENT SEEN FOR C/O FACIAL ACNE. PATIENT REPORTS CONDITION CHRONIC AND DENIES ITCHING TO AREA. Vital Signs Temperature 97.6 F 03/18/18 06:50 Pulse Rate 72 03/18/18 06:50 Respiratory Rate 18 03/18/18 06:50 Blood Pressure 94/65 03/18/18 06:50 O2 Sat by Pulse Oximetry (%) PE: SKIN: + ACNE AND COMEDOMES ON BILATERAL CHEEKS. NO REDNESS OR INFLAMMATION. SKIN INTACT A/P ACNE WILL START AVEENO SOAP CLINDAGEL TP BID X 7 DAYS MONITOR
[2018-03-18] MEDS: CLINDAMYCIN PHOSPHATE 1% TOPICAL GEL 30 GM TUBE TP SCH ×2 (12:36→21:19)
[2018-03-18] MEDS: MAGNESIUM CITRATE 300 ML BOTTLE PO PRN (17:29)
[2018-03-18] MEDS: THIAMINE HCL 100 MG TABLET (FP) PO SCH (21:19)
[2018-03-18] MEDS: BENZTROPINE MESYLATE 1 MG TABLET (FP) PO SCH (21:19)
[2018-03-18] MEDS: HALOPERIDOL 5 MG TABLET (FP) PO SCH (21:19)
[2018-03-19] MEDS: NICOTINE 14 MG/24 HOURS TOPICAL PATCH TD SCH (09:48)
[2018-03-19] MEDS: NICOTINE POLACRILEX 2 MG GUM BC PRN ×2 (09:48→12:32)
[2018-03-19] MEDS: PRENATAL VITAMINS W/ FOLIC ACID TABLET (FP) PO SCH (09:48)
[2018-03-19] MEDS: CARBAMIDE PEROXIDE 6.5% OTIC 15 ML BOTTLE AU SCH ×2 (09:49→21:29)
[2018-03-19] MEDS: CLINDAMYCIN PHOSPHATE 1% TOPICAL GEL 30 GM TUBE TP SCH ×2 (09:49→21:29)
[2018-03-19] MEDS: MAGNESIUM HYDROX 2400MG/30ML ORAL SUSPENSION 30 ML CUP PO PRN (16:11)
[2018-03-19] MEDS: THIAMINE HCL 100 MG TABLET (FP) PO SCH (21:28)
[2018-03-19] MEDS: HALOPERIDOL 5 MG TABLET (FP) PO SCH (21:29)
[2018-03-19] MEDS: BENZTROPINE MESYLATE 1 MG TABLET (FP) PO SCH (21:29)
[2018-03-20] MEDS: NICOTINE POLACRILEX 2 MG GUM BC PRN ×2 (08:40→12:31)
[2018-03-20] MEDS: CLINDAMYCIN PHOSPHATE 1% TOPICAL GEL 30 GM TUBE TP SCH ×2 (10:13→21:10)
[2018-03-20] MEDS: PRENATAL VITAMINS W/ FOLIC ACID TABLET (FP) PO SCH (10:13)
[2018-03-20] MEDS: CARBAMIDE PEROXIDE 6.5% OTIC 15 ML BOTTLE AU SCH ×2 (10:14→21:10)
[2018-03-20] MEDS: NICOTINE 14 MG/24 HOURS TOPICAL PATCH TD SCH (10:14)
[2018-03-20] MEDS: BENZTROPINE MESYLATE 1 MG TABLET (FP) PO SCH (21:09)
[2018-03-20] MEDS: HALOPERIDOL 5 MG TABLET (FP) PO SCH (21:09)
[2018-03-20] MEDS: THIAMINE HCL 100 MG TABLET (FP) PO SCH (21:09)
[2018-03-21] MEDS: NICOTINE POLACRILEX 2 MG GUM BC PRN ×4 (08:05→21:10)
[2018-03-21] MEDS: CARBAMIDE PEROXIDE 6.5% OTIC 15 ML BOTTLE AU SCH ×2 (09:55→21:27)
[2018-03-21] MEDS: CLINDAMYCIN PHOSPHATE 1% TOPICAL GEL 30 GM TUBE TP SCH ×2 (09:55→21:27)
[2018-03-21] MEDS: PRENATAL VITAMINS W/ FOLIC ACID TABLET (FP) PO SCH (09:55)
[2018-03-21] MEDS: NICOTINE 14 MG/24 HOURS TOPICAL PATCH TD SCH (09:55)
[2018-03-21] MEDS: IBUPROFEN 400 MG TABLET (FP) PO PRN (10:50)
--- NOTE | 2018-03-21 10:56 | PN ---
[facility] Progress Note Note: PATIENT REQUESTED RESULTS OF HIV RESULTS. Laboratory Tests 03/15/18 03/15/18 03/15/18 07:00 07:00 07:00 WBC 5.6 RBC 4.29 Hgb 13.2 Hct 39.2 MCV 91.4 MCH 30.8 MCHC 33.7 RDW 15.6 Plt Count 236 D MPV 9.8 Sodium 136 Potassium 4.3 Chloride 102 Carbon Dioxide 27 Anion Gap 8 BUN 14 Creatinine 0.6 Creat Clearance w eGFR > 60 Random Glucose 83 Calcium 8.3 L Total Bilirubin 0.5 AST 39 H ALT 21 Alkaline Phosphatase 113 Total Protein 7.2 Albumin 3.3 L RPR Titer Nonreactive HIV 1&2 Antibody Screen HIV P24 Antigen 03/18/18 09:55 WBC RBC Hgb Hct MCV MCH MCHC RDW Plt Count MPV Sodium Potassium Chloride Carbon Dioxide Anion Gap BUN Creatinine Creat Clearance w eGFR Random Glucose Calcium Total Bilirubin AST ALT Alkaline Phosphatase Total Protein Albumin RPR Titer HIV 1&2 Antibody Screen Negative HIV P24 Antigen Negative RESULTS NOTED AND GIVEN TO PATIENT. NO FURTHER INTERVENTION NEEDED.
[2018-03-21] MEDS ORDERED: PT OWN MED DRAWER 7, Y5N ONE ×2 (19:27→21:45)
[2018-03-21] MEDS: HALOPERIDOL 5 MG TABLET (FP) PO SCH (21:10)
[2018-03-21] MEDS: BENZTROPINE MESYLATE 1 MG TABLET (FP) PO SCH (21:10)
[2018-03-21] MEDS: THIAMINE HCL 100 MG TABLET (FP) PO SCH (21:10)
[2018-03-22] MEDS: CLINDAMYCIN PHOSPHATE 1% TOPICAL GEL 30 GM TUBE TP SCH ×2 (09:44→21:17)
[2018-03-22] MEDS: CARBAMIDE PEROXIDE 6.5% OTIC 15 ML BOTTLE AU SCH ×2 (09:45→21:18)
[2018-03-22] MEDS: PRENATAL VITAMINS W/ FOLIC ACID TABLET (FP) PO SCH (09:45)
[2018-03-22] MEDS: NICOTINE 14 MG/24 HOURS TOPICAL PATCH TD SCH (09:45)
[2018-03-22] MEDS: ACETAMINOPHEN 325 MG TABLET (FP) PO PRN ×2 (09:46→18:00)
[2018-03-22] MEDS: NICOTINE POLACRILEX 2 MG GUM BC PRN ×4 (09:47→21:18)
--- NOTE | 2018-03-22 12:49 | PN ---
[facility] Progress Note Note: PT REQUESTING TO D/C DEBROX BECAUSE FEELS BETTER. HAS BEEN ON IT WHILE IN DETOX. PT NOW IN REHAB. DENIES FURTHER EAR PROBLEMS. Vital Signs 03/22/18 06:43 Temperature 97.8 F Pulse Rate 71 Respiratory 16 Rate Blood Pressure 102/66 Laboratory Tests 03/15/18 03/15/18 03/15/18 07:00 07:00 07:00 WBC 5.6 RBC 4.29 Hgb 13.2 Hct 39.2 MCV 91.4 MCH 30.8 MCHC 33.7 RDW 15.6 Plt Count 236 D MPV 9.8 Sodium 136 Potassium 4.3 Chloride 102 Carbon Dioxide 27 Anion Gap 8 BUN 14 Creatinine 0.6 Creat Clearance w eGFR > 60 Random Glucose 83 Calcium 8.3 L Total Bilirubin 0.5 AST 39 H ALT 21 Alkaline Phosphatase 113 Total Protein 7.2 Albumin 3.3 L RPR Titer Nonreactive HIV 1&2 Antibody Screen HIV P24 Antigen 03/18/18 09:55 WBC RBC Hgb Hct MCV MCH MCHC RDW Plt Count MPV Sodium Potassium Chloride Carbon Dioxide Anion Gap BUN Creatinine Creat Clearance w eGFR Random Glucose Calcium Total Bilirubin AST ALT Alkaline Phosphatase Total Protein Albumin RPR Titer HIV 1&2 Antibody Screen Negative HIV P24 Antigen Negative D/C DEBROX EAR DROPS.
[2018-03-22] MEDS: THIAMINE HCL 100 MG TABLET (FP) PO SCH (21:18)
[2018-03-22] MEDS: HALOPERIDOL 5 MG TABLET (FP) PO SCH (21:18)
[2018-03-22] MEDS: BENZTROPINE MESYLATE 1 MG TABLET (FP) PO SCH (21:18)
[2018-03-23] MEDS: CARBAMIDE PEROXIDE 6.5% OTIC 15 ML BOTTLE AU SCH ×2 (09:37→21:09)
[2018-03-23] MEDS: CLINDAMYCIN PHOSPHATE 1% TOPICAL GEL 30 GM TUBE TP SCH ×2 (09:37→21:09)
[2018-03-23] MEDS: NICOTINE 14 MG/24 HOURS TOPICAL PATCH TD SCH (09:37)
[2018-03-23] MEDS: ACETAMINOPHEN 325 MG TABLET (FP) PO PRN (09:38)
[2018-03-23] MEDS: PRENATAL VITAMINS W/ FOLIC ACID TABLET (FP) PO SCH (09:38)
[2018-03-23] MEDS: NICOTINE POLACRILEX 2 MG GUM BC PRN ×4 (09:39→17:27)
[2018-03-23] MEDS: IBUPROFEN 400 MG TABLET (FP) PO PRN (14:18)
--- NOTE | 2018-03-23 15:43 | PN ---
[facility] Progress Note Note: PT C/O GETTING UP TOO FAST AND FELT SOME PAIN IN RIGHT GROIN. DENIES DIFFICULTY WALKING OR MOVING JOINT. REPORTS HE RECEIVED MOTRIN WITH RELIEF. Laboratory Tests 03/15/18 03/15/18 03/15/18 07:00 07:00 07:00 WBC 5.6 RBC 4.29 Hgb 13.2 Hct 39.2 MCV 91.4 MCH 30.8 MCHC 33.7 RDW 15.6 Plt Count 236 D MPV 9.8 Sodium 136 Potassium 4.3 Chloride 102 Carbon Dioxide 27 Anion Gap 8 BUN 14 Creatinine 0.6 Creat Clearance w eGFR > 60 Random Glucose 83 Calcium 8.3 L Total Bilirubin 0.5 AST 39 H ALT 21 Alkaline Phosphatase 113 Total Protein 7.2 Albumin 3.3 L RPR Titer Nonreactive HIV 1&2 Antibody Screen HIV P24 Antigen 03/18/18 09:55 WBC RBC Hgb Hct MCV MCH MCHC RDW Plt Count MPV Sodium Potassium Chloride Carbon Dioxide Anion Gap BUN Creatinine Creat Clearance w eGFR Random Glucose Calcium Total Bilirubin AST ALT Alkaline Phosphatase Total Protein Albumin RPR Titer HIV 1&2 Antibody Screen Negative HIV P24 Antigen Negative Vital Signs - 24 hr 03/23/18 03/23/18 03/23/18 00:30 03:30 06:36 Temperature 97.8 F Pulse Rate 66 Respiratory 18 18 18 Rate Blood Pressure 110/76 AMBULATING WITH NO LIMP/DIFFICULTY. ACTIVE ROM. A:RIGHT GROIN LIGAMENT STRAIN PLAN:MOTRIN PRN
[2018-03-23] MEDS: MAGNESIUM HYDROX 2400MG/30ML ORAL SUSPENSION 30 ML CUP PO PRN (17:26)
[2018-03-23] MEDS: THIAMINE HCL 100 MG TABLET (FP) PO SCH (21:08)
[2018-03-23] MEDS: BENZTROPINE MESYLATE 1 MG TABLET (FP) PO SCH (21:09)
[2018-03-23] MEDS: HALOPERIDOL 5 MG TABLET (FP) PO SCH (21:09)
[2018-03-23] MEDS: MAGNESIUM CITRATE 300 ML BOTTLE PO PRN (21:10)
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
[2018-03-24] MEDS: NICOTINE POLACRILEX 2 MG GUM BC PRN ×4 (08:49→17:56)
[2018-03-24] MEDS: CLINDAMYCIN PHOSPHATE 1% TOPICAL GEL 30 GM TUBE TP SCH ×2 (09:51→21:21)
[2018-03-24] MEDS: PRENATAL VITAMINS W/ FOLIC ACID TABLET (FP) PO SCH (09:51)
[2018-03-24] MEDS: CARBAMIDE PEROXIDE 6.5% OTIC 15 ML BOTTLE AU SCH ×2 (09:52→21:23)
[2018-03-24] MEDS: NICOTINE 14 MG/24 HOURS TOPICAL PATCH TD SCH (09:52)
[2018-03-24] MEDS ORDERED: SELENIUM SULFIDE 2.5% LOTION 4 OZ. TP SCH ×2 (10:00→18:00)
--- NOTE | 2018-03-24 10:18 | PN ---
[facility] Progress Note Note: PATIENT C/O ITCHING TO SCALP. REQUESTED SCALP TO BE EXAMINED FOR "BUGS". Vital Signs Temperature 97.9 F 03/24/18 06:49 Pulse Rate 76 03/24/18 06:49 Respiratory Rate 18 03/24/18 06:49 Blood Pressure 133/89 03/24/18 06:49 O2 Sat by Pulse Oximetry (%) Laboratory Tests 03/15/18 03/15/18 03/15/18 07:00 07:00 07:00 WBC 5.6 RBC 4.29 Hgb 13.2 Hct 39.2 MCV 91.4 MCH 30.8 MCHC 33.7 RDW 15.6 Plt Count 236 D MPV 9.8 Sodium 136 Potassium 4.3 Chloride 102 Carbon Dioxide 27 Anion Gap 8 BUN 14 Creatinine 0.6 Creat Clearance w eGFR > 60 Random Glucose 83 Calcium 8.3 L Total Bilirubin 0.5 AST 39 H ALT 21 Alkaline Phosphatase 113 Total Protein 7.2 Albumin 3.3 L RPR Titer Nonreactive HIV 1&2 Antibody Screen HIV P24 Antigen 03/18/18 09:55 WBC RBC Hgb Hct MCV MCH MCHC RDW Plt Count MPV Sodium Potassium Chloride Carbon Dioxide Anion Gap BUN Creatinine Creat Clearance w eGFR Random Glucose Calcium Total Bilirubin AST ALT Alkaline Phosphatase Total Protein Albumin RPR Titer HIV 1&2 Antibody Screen Negative HIV P24 Antigen Negative PE: SCALP INTACT, NO REDNESS OR INSECTS NOTED. +DANDRUFF. A/P: DANDRUFF WILL ORDER SELSUN BLUE SHAMPOO CONTINUE TO MONITOR CLINICALLY
[2018-03-24] MEDS ORDERED: diphenhydrAMINE HCL 25 MG CAPSULE (FP) PO ONE (12:31)
[2018-03-24] MEDS ORDERED: PT OWN MED DRAWER 7, Y5N ONE (12:36)
[2018-03-24] MEDS: SELENIUM SULFIDE 2.5% LOTION 4 OZ. TP SCH (16:38)
[2018-03-24] MEDS: BENZTROPINE MESYLATE 1 MG TABLET (FP) PO SCH (21:21)
[2018-03-24] MEDS: HALOPERIDOL 5 MG TABLET (FP) PO SCH (21:21)
[2018-03-24] MEDS: THIAMINE HCL 100 MG TABLET (FP) PO SCH (21:21)
[2018-03-24] MEDS: MAGNESIUM HYDROX 2400MG/30ML ORAL SUSPENSION 30 ML CUP PO PRN (21:22)
[2018-03-25] MEDS ORDERED: PT OWN MED DRAWER 7, Y5N ONE (08:34)
[2018-03-25] MEDS: PRENATAL VITAMINS W/ FOLIC ACID TABLET (FP) PO SCH (09:57)
[2018-03-25] MEDS: CARBAMIDE PEROXIDE 6.5% OTIC 15 ML BOTTLE AU SCH ×2 (10:02→21:38)
[2018-03-25] MEDS: CLINDAMYCIN PHOSPHATE 1% TOPICAL GEL 30 GM TUBE TP SCH (10:02)
[2018-03-25] MEDS: NICOTINE POLACRILEX 2 MG GUM BC PRN ×4 (10:03→17:38)
[2018-03-25] MEDS: SELENIUM SULFIDE 2.5% LOTION 4 OZ. TP SCH (10:03)
[2018-03-25] MEDS: NICOTINE 14 MG/24 HOURS TOPICAL PATCH TD SCH (10:03)
[2018-03-25] MEDS: IBUPROFEN 400 MG TABLET (FP) PO PRN (11:00)
--- NOTE | 2018-03-25 11:01 | PN ---
[facility] Progress Note Note: NOTIFIED BY RN PATIENT CONTINUES TO C/O ITCHING OF SKIN AND REPORTS IF BUGS ARE CRAWLING ON HER. PATIENT SEEN FOR C/O ITCHING OF SKIN AND SCALP THIS WEEK AND STARTED ON SELSUN BLUE SHAMPOO AND HYDROCORTISONE CREAM. WILL ORDER PSYCH RECONSULT TO RULE OUT TACTILE HALLUCINATIONS. Vital Signs Temperature 98.0 F 03/25/18 07:05 Pulse Rate 69 03/25/18 07:05 Respiratory Rate 18 03/25/18 07:05 Blood Pressure 102/65 03/25/18 07:05 O2 Sat by Pulse Oximetry (%)
--- NOTE | 2018-03-25 16:48 | PN ---
[facility] Progress Note Note: Asked to reevaluate the patient who was complaining of bugs all over, itching.Patient reports that she is better now,no imaginations,it was just some itching and she is not the only one who is complaining about bugs(?).Patient looks somewhat suspicious,but no a/v hallucinations reported,not delusional.Psychoeducation,supportive therapy provided.Patient accepted advice to use her coping skills,be more cooperative,emotional support provided
[2018-03-25] MEDS: BENZTROPINE MESYLATE 1 MG TABLET (FP) PO SCH (21:37)
[2018-03-25] MEDS: HALOPERIDOL 5 MG TABLET (FP) PO SCH (21:37)
[2018-03-25] MEDS: THIAMINE HCL 100 MG TABLET (FP) PO SCH (21:37)
[2018-03-26] MEDS ORDERED: PT OWN MED DRAWER 7, Y5N ONE (08:24)
[2018-03-26] MEDS: NICOTINE POLACRILEX 2 MG GUM BC PRN ×4 (08:32→18:57)
[2018-03-26] MEDS: CARBAMIDE PEROXIDE 6.5% OTIC 15 ML BOTTLE AU SCH ×2 (09:52→21:17)
[2018-03-26] MEDS: PRENATAL VITAMINS W/ FOLIC ACID TABLET (FP) PO SCH (09:52)
[2018-03-26] MEDS: SELENIUM SULFIDE 2.5% LOTION 4 OZ. TP SCH (09:52)
[2018-03-26] MEDS: NICOTINE 14 MG/24 HOURS TOPICAL PATCH TD SCH (09:52)
[2018-03-26] MEDS: MAGNESIUM CITRATE 300 ML BOTTLE PO PRN (18:57)
[2018-03-26] MEDS: THIAMINE HCL 100 MG TABLET (FP) PO SCH (21:17)
[2018-03-26] MEDS: HALOPERIDOL 5 MG TABLET (FP) PO SCH (21:17)
[2018-03-26] MEDS: BENZTROPINE MESYLATE 1 MG TABLET (FP) PO SCH (21:17)
[2018-03-27] MEDS: NICOTINE POLACRILEX 2 MG GUM BC PRN ×3 (08:21→17:20)
[2018-03-27] MEDS: PRENATAL VITAMINS W/ FOLIC ACID TABLET (FP) PO SCH (09:53)
[2018-03-27] MEDS: SELENIUM SULFIDE 2.5% LOTION 4 OZ. TP SCH (09:54)
[2018-03-27] MEDS: NICOTINE 14 MG/24 HOURS TOPICAL PATCH TD SCH (09:54)
[2018-03-27] MEDS ORDERED: PT OWN MED DRAWER 7, Y5N ONE (09:54)
[2018-03-27] MEDS: CARBAMIDE PEROXIDE 6.5% OTIC 15 ML BOTTLE AU SCH ×2 (09:54→21:14)
[2018-03-27] MEDS: MAGNESIUM HYDROX 2400MG/30ML ORAL SUSPENSION 30 ML CUP PO PRN (14:16)
[2018-03-27] MEDS: THIAMINE HCL 100 MG TABLET (FP) PO SCH (21:14)
[2018-03-27] MEDS: HALOPERIDOL 5 MG TABLET (FP) PO SCH (21:14)
[2018-03-27] MEDS: BENZTROPINE MESYLATE 1 MG TABLET (FP) PO SCH (21:14)
[2018-03-28] MEDS: NICOTINE POLACRILEX 2 MG GUM BC PRN ×3 (08:52→17:59)
[2018-03-28] MEDS: NICOTINE 14 MG/24 HOURS TOPICAL PATCH TD SCH (09:58)
[2018-03-28] MEDS: PRENATAL VITAMINS W/ FOLIC ACID TABLET (FP) PO SCH (09:58)
[2018-03-28] MEDS: HYDROCORTISONE 0.5% TOPICAL CREAM 30 GM TUBE TP PRN (09:59)
[2018-03-28] MEDS: CARBAMIDE PEROXIDE 6.5% OTIC 15 ML BOTTLE AU SCH ×2 (10:00→21:05)
[2018-03-28] MEDS: SELENIUM SULFIDE 2.5% LOTION 4 OZ. TP SCH (10:00)
[2018-03-28] MEDS ORDERED: PT OWN MED DRAWER 7, Y5N ONE (10:36)
[2018-03-28] MEDS: MAGNESIUM HYDROX 2400MG/30ML ORAL SUSPENSION 30 ML CUP PO PRN (17:58)
[2018-03-28] MEDS: BENZTROPINE MESYLATE 1 MG TABLET (FP) PO SCH (21:05)
[2018-03-28] MEDS: THIAMINE HCL 100 MG TABLET (FP) PO SCH (21:05)
[2018-03-28] MEDS: HALOPERIDOL 5 MG TABLET (FP) PO SCH (22:01)
[2018-03-29] MEDS ORDERED: PT OWN MED DRAWER 7, Y5N ONE (08:54)
[2018-03-29] MEDS: CARBAMIDE PEROXIDE 6.5% OTIC 15 ML BOTTLE AU SCH ×2 (09:20→21:20)
[2018-03-29] MEDS: NICOTINE 14 MG/24 HOURS TOPICAL PATCH TD SCH (09:20)
[2018-03-29] MEDS: PRENATAL VITAMINS W/ FOLIC ACID TABLET (FP) PO SCH (09:20)
[2018-03-29] MEDS: SELENIUM SULFIDE 2.5% LOTION 4 OZ. TP SCH (09:20)
[2018-03-29] MEDS: NICOTINE POLACRILEX 2 MG GUM BC PRN ×2 (09:21→12:26)
[2018-03-29] MEDS: HALOPERIDOL 5 MG TABLET (FP) PO SCH (21:19)
[2018-03-29] MEDS: THIAMINE HCL 100 MG TABLET (FP) PO SCH (21:19)
[2018-03-29] MEDS: BENZTROPINE MESYLATE 1 MG TABLET (FP) PO SCH (21:20)
[2018-03-30] MEDS: NICOTINE POLACRILEX 2 MG GUM BC PRN ×4 (08:54→21:17)
[2018-03-30] MEDS: PRENATAL VITAMINS W/ FOLIC ACID TABLET (FP) PO SCH (09:48)
[2018-03-30] MEDS: NICOTINE 14 MG/24 HOURS TOPICAL PATCH TD SCH (09:49)
[2018-03-30] MEDS: CARBAMIDE PEROXIDE 6.5% OTIC 15 ML BOTTLE AU SCH ×2 (09:49→21:17)
[2018-03-30] MEDS: SELENIUM SULFIDE 2.5% LOTION 4 OZ. TP SCH (09:49)
[2018-03-30] MEDS: THIAMINE HCL 100 MG TABLET (FP) PO SCH (21:16)
[2018-03-30] MEDS: BENZTROPINE MESYLATE 1 MG TABLET (FP) PO SCH (21:16)
[2018-03-30] MEDS: HALOPERIDOL 5 MG TABLET (FP) PO SCH (21:16)
[2018-03-30] MEDS: MAGNESIUM HYDROX 2400MG/30ML ORAL SUSPENSION 30 ML CUP PO PRN (21:31)
[2018-03-31] MEDS: NICOTINE POLACRILEX 2 MG GUM BC PRN ×2 (07:51→17:32)
[2018-03-31] MEDS ORDERED: PT OWN MED DRAWER 7, Y5N ONE ×3 (07:51→19:09)
[2018-03-31] MEDS: CARBAMIDE PEROXIDE 6.5% OTIC 15 ML BOTTLE AU SCH ×2 (09:30→21:29)
[2018-03-31] MEDS: PRENATAL VITAMINS W/ FOLIC ACID TABLET (FP) PO SCH (09:30)
[2018-03-31] MEDS: NICOTINE 14 MG/24 HOURS TOPICAL PATCH TD SCH (09:30)
[2018-03-31] MEDS: HALOPERIDOL 5 MG TABLET (FP) PO SCH (21:29)
[2018-03-31] MEDS: THIAMINE HCL 100 MG TABLET (FP) PO SCH (21:29)
[2018-03-31] MEDS: BENZTROPINE MESYLATE 1 MG TABLET (FP) PO SCH (21:29)
[2018-04-01] MEDS: NICOTINE POLACRILEX 2 MG GUM BC PRN ×4 (08:11→20:02)
[2018-04-01] MEDS ORDERED: PT OWN MED DRAWER 7, Y5N ONE (08:35)
[2018-04-01] MEDS: PRENATAL VITAMINS W/ FOLIC ACID TABLET (FP) PO SCH (09:35)
[2018-04-01] MEDS: NICOTINE 14 MG/24 HOURS TOPICAL PATCH TD SCH (09:36)
[2018-04-01] MEDS: CARBAMIDE PEROXIDE 6.5% OTIC 15 ML BOTTLE AU SCH ×2 (09:37→21:13)
[2018-04-01] MEDS: HYDROCORTISONE 0.5% TOPICAL CREAM 30 GM TUBE TP PRN (09:37)
--- NOTE | 2018-04-01 11:20 | PN ---
S Progress Note Note: PT REQUESTED TO SEE PROVIDER BECAUSE SCALP ITCHING. CONCERNED ABOUT FRONTAL HAIR BEGINNING TO THIN OUT AND WANTS AN ANSWER. Vital Signs 04/01/18 07:28 Temperature 97.1 F L Pulse Rate 71 Respiratory 18 Rate Blood Pressure 110/63 Laboratory Tests 03/15/18 03/15/18 03/15/18 07:00 07:00 07:00 WBC 5.6 RBC 4.29 Hgb 13.2 Hct 39.2 MCV 91.4 MCH 30.8 MCHC 33.7 RDW 15.6 Plt Count 236 D MPV 9.8 Sodium 136 Potassium 4.3 Chloride 102 Carbon Dioxide 27 Anion Gap 8 BUN 14 Creatinine 0.6 Creat Clearance w eGFR > 60 Random Glucose 83 Calcium 8.3 L Total Bilirubin 0.5 AST 39 H ALT 21 Alkaline Phosphatase 113 Total Protein 7.2 Albumin 3.3 L RPR Titer Nonreactive HIV 1&2 Antibody Screen HIV P24 Antigen 03/18/18 09:55 WBC RBC Hgb Hct MCV MCH MCHC RDW Plt Count MPV Sodium Potassium Chloride Carbon Dioxide Anion Gap BUN Creatinine Creat Clearance w eGFR Random Glucose Calcium Total Bilirubin AST ALT Alkaline Phosphatase Total Protein Albumin RPR Titer HIV 1&2 Antibody Screen Negative HIV P24 Antigen Negative HEAD:CLEAN WITH NO LESIONS VERY MINIMAL THINNING OF HAIR FRONTAL AREAS COMPARED TO OTHER PARTS OF HER HEAD. NAD PLAN:SUGGESTED TO PT TO FOLLOW UP WITH HER PCP/DERMATOLOGY AFTER REHAB FOR FURTHER EVALUATION.
[2018-04-01] MEDS: THIAMINE HCL 100 MG TABLET (FP) PO SCH (21:13)
[2018-04-01] MEDS: HALOPERIDOL 5 MG TABLET (FP) PO SCH (21:14)
[2018-04-01] MEDS: BENZTROPINE MESYLATE 1 MG TABLET (FP) PO SCH (21:14)
[2018-04-02] MEDS ORDERED: PT OWN MED DRAWER 7, Y5N ONE ×3 (08:51→21:16)
[2018-04-02] MEDS: PRENATAL VITAMINS W/ FOLIC ACID TABLET (FP) PO SCH (09:39)
[2018-04-02] MEDS: NICOTINE 14 MG/24 HOURS TOPICAL PATCH TD SCH (09:40)
[2018-04-02] MEDS: CARBAMIDE PEROXIDE 6.5% OTIC 15 ML BOTTLE AU SCH ×2 (09:40→21:19)
[2018-04-02] MEDS: NICOTINE POLACRILEX 2 MG GUM BC PRN ×3 (12:15→21:20)
[2018-04-02] MEDS: MAGNESIUM HYDROX 2400MG/30ML ORAL SUSPENSION 30 ML CUP PO PRN (18:23)
[2018-04-02] MEDS: THIAMINE HCL 100 MG TABLET (FP) PO SCH (21:18)
[2018-04-02] MEDS: HALOPERIDOL 5 MG TABLET (FP) PO SCH (21:18)
[2018-04-02] MEDS: BENZTROPINE MESYLATE 1 MG TABLET (FP) PO SCH (21:19)
[2018-04-03] MEDS ORDERED: PT OWN MED DRAWER 7, Y5N ONE (08:45)
[2018-04-03] MEDS: NICOTINE POLACRILEX 2 MG GUM BC PRN ×3 (08:46→21:21)
[2018-04-03] MEDS: PRENATAL VITAMINS W/ FOLIC ACID TABLET (FP) PO SCH (09:28)
[2018-04-03] MEDS: HYDROCORTISONE 0.5% TOPICAL CREAM 30 GM TUBE TP PRN (09:29)
[2018-04-03] MEDS: CARBAMIDE PEROXIDE 6.5% OTIC 15 ML BOTTLE AU SCH ×2 (09:29→21:21)
[2018-04-03] MEDS: NICOTINE 14 MG/24 HOURS TOPICAL PATCH TD SCH (09:29)
[2018-04-03] MEDS: THIAMINE HCL 100 MG TABLET (FP) PO SCH (21:20)
[2018-04-03] MEDS: BENZTROPINE MESYLATE 1 MG TABLET (FP) PO SCH (21:20)
[2018-04-03] MEDS: HALOPERIDOL 5 MG TABLET (FP) PO SCH (21:20)
[2018-04-04] MEDS: NICOTINE POLACRILEX 2 MG GUM BC PRN ×3 (08:36→17:31)
[2018-04-04] MEDS: PRENATAL VITAMINS W/ FOLIC ACID TABLET (FP) PO SCH (09:33)
[2018-04-04] MEDS: HYDROCORTISONE 0.5% TOPICAL CREAM 30 GM TUBE TP PRN (09:34)
[2018-04-04] MEDS ORDERED: PT OWN MED DRAWER 7, Y5N ONE ×3 (09:34→19:45)
[2018-04-04] MEDS: NICOTINE 14 MG/24 HOURS TOPICAL PATCH TD SCH (10:24)
[2018-04-04] MEDS: THIAMINE HCL 100 MG TABLET (FP) PO SCH (21:20)
[2018-04-04] MEDS: BENZTROPINE MESYLATE 1 MG TABLET (FP) PO SCH (21:21)
[2018-04-04] MEDS: HALOPERIDOL 5 MG TABLET (FP) PO SCH (21:21)
[2018-04-04] MEDS: MAGNESIUM HYDROX 2400MG/30ML ORAL SUSPENSION 30 ML CUP PO PRN (21:22)
[2018-04-05] MEDS: MAGNESIUM CITRATE 300 ML BOTTLE PO PRN (06:21)
[2018-04-05] MEDS: NICOTINE POLACRILEX 2 MG GUM BC PRN ×4 (08:47→21:21)
[2018-04-05] MEDS: NICOTINE 14 MG/24 HOURS TOPICAL PATCH TD SCH (09:37)
[2018-04-05] MEDS: PRENATAL VITAMINS W/ FOLIC ACID TABLET (FP) PO SCH (09:37)
[2018-04-05] MEDS: BENZTROPINE MESYLATE 1 MG TABLET (FP) PO SCH (21:21)
[2018-04-05] MEDS: HALOPERIDOL 5 MG TABLET (FP) PO SCH (21:21)
[2018-04-05] MEDS: THIAMINE HCL 100 MG TABLET (FP) PO SCH (21:21)
[2018-04-06] MEDS: NICOTINE POLACRILEX 2 MG GUM BC PRN ×4 (08:43→21:06)
[2018-04-06] MEDS: PRENATAL VITAMINS W/ FOLIC ACID TABLET (FP) PO SCH (09:36)
[2018-04-06] MEDS: NICOTINE 14 MG/24 HOURS TOPICAL PATCH TD SCH (09:36)
[2018-04-06] MEDS: HYDROCORTISONE 0.5% TOPICAL CREAM 30 GM TUBE TP PRN (09:38)
[2018-04-06] MEDS ORDERED: diphenhydrAMINE HCL 50 MG CAPSULE PO PRN (10:18)
--- NOTE | 2018-04-06 10:25 | PN ---
Psychiatric Progress Note Vital Signs: Vital Signs Period Temp Pulse Resp BP Sys/Reynolds Pulse Ox Last 24 Hr 97.8 F 62 18-18 99/61 Date of Session: 04/06/18 Chief Complaint:: According to the staff patient is still quarded,suspicious. HPI: Patient addressed alcohol,cannabis and Cocaine dependence comorbid with Bipolar disorder. ROS: H/o Seizures,Thyroid enlargment. Current Medications: Active Medications Generic Name Dose Route Start Last Admin Trade Name Freq PRN Reason Stop Dose Admin Acetaminophen 650 mg 03/14/18 23:00 03/23/18 09:38 Tylenol - PO 650 mg Q4H PRN Administration FEVER Al Hydroxide/Mg Hydroxide 30 ml 03/14/18 23:00 03/18/18 12:42 Mylanta Oral Suspension - PO 30 ml Q6H PRN Administration DYSPEPSIA Benztropine Mesylate 1 mg 03/15/18 22:00 04/05/18 21:21 Cogentin - PO 1 mg HS CHAD Administration Colloidal Oatmeal 1 applic 03/18/18 10:21 03/18/18 12:36 Aveeno Soap - TP 1 bar DAILY PRN Administration HYGEINE Eucalyptus/Menthol/Phenol/Sorbitol 1 each 03/14/18 23:00 Cepastat Lozenge - MM Q4H PRN SORE THROAT Guaifenesin 10 ml 03/14/18 23:00 03/28/18 09:59 Robitussin Dm - PO 10 ml Q6H PRN Administration COUGH Haloperidol 5 mg 03/15/18 22:00 04/05/18 21:21 Haldol - PO 5 mg HS CHAD Administration Hydrocortisone 1 applic 03/24/18 15:45 04/06/18 09:38 Hytone 0.5% Cream - TP 1 applic BID PRN Administration FOR ITCHING Ibuprofen 400 mg 03/14/18 23:00 03/25/18 11:00 Motrin - PO 400 mg Q6H PRN Administration PAIN LEVEL 4-6 Loperamide HCl 4 mg 03/14/18 23:00 Imodium - PO Q6H PRN DIARRHEA Magnesium Citrate 300 ml 03/14/18 23:00 04/05/18 06:21 Citroma - PO 300 ml Q48H PRN Administration CONSTIPATION Magnesium Hydroxide 30 ml 03/14/18 23:00 04/04/18 21:22 Milk Of Magnesia - PO 30 ml DAILY PRN Administration CONSTIPATION Melatonin 5 mg 03/14/18 22:00 Melatonin PO HS PRN INSOMNIA Nicotine 14 mg 03/15/18 10:00 04/06/18 09:36 Nicoderm Patch - TD Not Given DAILY CHAD Nicotine Polacrilex 2 mg 03/14/18 23:00 04/06/18 08:43 Nicorette Gum - BC 2 mg Q2H PRN Administration NICOTINE REPLACEMENT RX Multivit/Folic Acid/Iron 1 tab 03/15/18 10:00 04/06/18 09:36 Vitamins (Sjr) - PO 1 tab DAILY CHAD Administration Pseudoephedrine/Triprolidine 1 combo 03/14/18 23:00 Actifed - PO TID PRN NASAL CONGESTION Thiamine HCl 100 mg 03/15/18 22:00 04/05/18 21:21 Vitamin B1 - PO 100 mg HS CHAD Administration Current Side Effect: No Lab tests ordered: No Lab tests reviewed: Yes Provider note:: Chart was revuewed,patient was seen,medications and reatment has been discussed with the patient.Patient has no new compliants,superficially cooperative,compliant with treatmentplan.Properties of Haldol as well as other antipsychotics has been discussed with patient .She is willing to continue above medications as per plan,stating that she has no side effects and is feeling better. Supportive therapy provided focusing on relapse prevention, coping skills,support utilization has been discussed with the patient as well as other resourses to maintain recovery. Will monitor progress. Total face to face time:: 30 Mental Status Exam - Mental Status Exam Alert and Oriented to: Time, Place, Person Cognitive Function: Grossly Intact Patient Appearance: Well Groomed Mood: Euthymic Affect: Mood Congruent Patient Behavior: Cooperative Speech Pattern: Clear Voice Loudness: Normal Thought Process: Goal Oriented Thought Disorder: Not Present Hallucinations: Denies Suicidal Ideation: Denies Homicidal Ideation: Denies Insight/Judgement: Fair Sleep: Fair Appetite: Good Muscle strength/Tone: Normal Gait/Station: Normal Psychiatric Treatment Plan - Problem List (3) Nicotine dependence Qualifiers: Nicotine product type: cigarettes Substance use status: uncomplicated Qualified Code(s): F17.210 - Nicotine dependence, cigarettes, uncomplicated
[2018-04-06] MEDS: THIAMINE HCL 100 MG TABLET (FP) PO SCH (21:05)
[2018-04-06] MEDS: HALOPERIDOL 5 MG TABLET (FP) PO SCH (21:05)
[2018-04-06] MEDS: BENZTROPINE MESYLATE 1 MG TABLET (FP) PO SCH (21:05)
[2018-04-07 07:06] VITALS: BP 105/70; PULSE 69; TEMP 98.4
[2018-04-07] MEDS: NICOTINE POLACRILEX 2 MG GUM BC PRN (08:24)
[2018-04-07] MEDS ORDERED: PT OWN MED DRAWER 7, Y5N ONE (08:40)
[2018-04-07] MEDS: NICOTINE 14 MG/24 HOURS TOPICAL PATCH TD SCH (09:42)
[2018-04-07] MEDS: PRENATAL VITAMINS W/ FOLIC ACID TABLET (FP) PO SCH (09:42)
== END 2018-04-07 10:18 | disposition home or self-care (01) | DRG 895 ==
LOC: YASAS 21:06 → Y6N 23:26 → Y3E 03-17 14:01
PROVIDERS: ADMIT Neuromusculoskeletal Medicine & OMM; ATTEND Psychiatry & Neurology Psychiatry
PROC: HZ2ZZZZ Detoxification Services for Substance Abuse Treatment (ICD-10-PCS; principal; 2018-03-14)
PROC: HZ42ZZZ Group Counseling for Substance Abuse Treatment, Cognitive-Behavioral (ICD-10-PCS; 2018-03-14)
DX: F10.230 Alcohol dependence with withdrawal, uncomplicated (principal); F14.20 Cocaine dependence, uncomplicated; F31.81 Bipolar II disorder; F12.20 Cannabis dependence, uncomplicated; F17.210 Nicotine dependence, cigarettes, uncomplicated; E04.9 Nontoxic goiter, unspecified; L21.9 Seborrheic dermatitis, unspecified; L29.9 Pruritus, unspecified; L70.9 Acne, unspecified; S76.911A Strain of unspecified muscles, fascia and tendons at thigh level, right thigh, initial encounter; X50.0XXA Overexertion from strenuous movement or load, initial encounter; Y93.89 Activity, other specified; Y92.230 Patient room in hospital as the place of occurrence of the external cause; Z86.69 Personal history of other diseases of the nervous system and sense organs; Z91.5 Personal history of self-harm
CPT/HCPCS: 36415; 80053; 85027; 86593; 87389

== ENCOUNTER 2018-06-06 12:39 | Inpatient (IN) | payer OTHER ==
[2018-06-06 15:45] VITALS: BMI 31.6
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
[2018-06-06] MEDS ORDERED: MAG HYDROX/AL HYDROX/SIMETH 30 ML UNIT-DOSE CUP PO PRN (17:46)
[2018-06-06] MEDS ORDERED: ACETAMINOPHEN 325 MG TABLET (FP) PO PRN ×2 (17:46)
[2018-06-06] MEDS ORDERED: MAGNESIUM CITRATE 300 ML BOTTLE PO PRN (17:46)
[2018-06-06] MEDS ORDERED: MENTHOL/PHENOL 1 EACH UD MM PRN (17:46)
[2018-06-06] MEDS ORDERED: METHOCARBAMOL 500 MG TABLET PO PRN (17:46)
[2018-06-06] MEDS ORDERED: MELATONIN 5 MG TABLETS PO PRN (17:46)
[2018-06-06] MEDS ORDERED: MAGNESIUM HYDROX 2400MG/30ML ORAL SUSPENSION 30 ML CUP PO PRN (17:46)
[2018-06-06] MEDS ORDERED: hydrOXYzine PAMOATE 25 MG CAPSULE (FP) PO PRN (17:46)
[2018-06-06] MEDS ORDERED: BISMUTH SUBSALICYLATE 524 MG/30 ML UD PO PRN (17:46)
[2018-06-06] MEDS: chlordiazePOXIDE HCL 10 MG CAPSULE PO PRN (19:29)
[2018-06-06] MEDS: THIAMINE HCL 100 MG TABLET (FP) PO SCH (22:23)
[2018-06-06] MEDS: chlordiazePOXIDE HCL 25 MG CAPSULE PO SCH (22:23)
[2018-06-07] MEDS: chlordiazePOXIDE HCL 25 MG CAPSULE PO SCH ×2 (06:37→13:19)
[2018-06-07] MEDS: PRENATAL VITAMINS W/ FOLIC ACID TABLET (FP) PO SCH (10:50)
[2018-06-07] MEDS: NICOTINE 14 MG/24 HOURS TOPICAL PATCH TD SCH (10:50)
[2018-06-07] MEDS: NICOTINE POLACRILEX 2 MG GUM BUC PRN ×4 (10:51→21:38)
--- NOTE | 2018-06-07 12:42 | PN ---
S Progress Note Note: Psychiatry Attending's note : Patient is approached at bedside. For psychiatric evaluation. Ms Zapien refused.
--- NOTE | 2018-06-07 14:41 | PN ---
S CIWA - CIWA Score Nausea/Vomitin-No Nausea/No Vomiting Muscle Tremors: 2 Anxiety: 2 Agitation: 2 Paroxysmal Sweats: 1-Minimal Palms Moist Orientation: 1-Uncertain about Date Tacttile Disturbances: 0-None Auditory Disturbances: 0-None Visual Disturbances: 0-None Headache: 0-None Present CIWA-Ar Total Score: 8 [facility] Progress Note (SOAP) Subjective: chronic back pain skin intact denies recent trauma none tender denies alteration bowel nor urine ambulating on hallway steady gait Objective: 06/07/18 14:41 Vital Signs Temperature 98.2 F 06/07/18 14:34 Pulse Rate 76 06/07/18 14:34 Respiratory Rate 18 06/07/18 14:34 Blood Pressure 121/80 06/07/18 14:34 O2 Sat by Pulse Oximetry (%) 06/07/18 14:41 lab will be drawn 06/08/18 Assessment: 06/07/18 14:42 withdrawal chronic back pain Plan: continue detox heating pad to back
--- NOTE | 2018-06-07 17:31 | CONSULT ---
[facility] Psychiatric Consult - Data Date of interview: 06/07/18 Admission source: [facility] Identifying data: Readmission to [facility] for this 33 y/o AA female self- referred for detoxification treatment (alcohol, cocaine, cannabis). Patient is single without children, homeless, unemployed and reportedly deprived of any source of income. Substance Abuse History: Conformed by the patient in this interview. Details in current [facility] report as follows : Smoking history: Current every day smoker. Have you smoked in the past 12 months: Yes. Aproximately how many cigarettes per day: 10. Cigars Per Day: 0. Hx Chewing Tobacco Use: No. Initiated information on smoking cessation: Yes. 'Breaking Loose' booklet given: . - Substance & Tx. History. Hx Alcohol Use: Yes. Hx Substance Use: Yes. Substance Use Type: Alcohol, Cocaine. Hx Substance Use Treatment: Yes (Last detox [facility] March 2018). - Substances abused. Alcohol. Substance route: Oral. Frequency: Daily. Amount used: 1/2 pint of vodka. Age of first use: 15. Date of last use: 06/06/18. Cocaine. Frequency: 1-2 times per week. Amount used: 1 - 2 bags. Age of first use: 25. Date of last use: 06/03/18 Medical History: Patient endorses good general health. Psychiatric History: Patient denies history of psychiatric illness, hospitalizations or suicide attempts. Unreliable historian. Records at [facility] reveal that this patient, seen many times in this facility by various clinicians, has a history of multiple psychiatric hospitalizations, chronic pattern of non-adherence to OPD care + psychiatric medications and enduring history of addictions. Records indicate history of suicide attempts. Physical/Sexual Abuse/Trauma History: Patient denies. Additional Comment: Urine drug screen results: THC-Marijuana, DOMINIC-Cocaine, BZO- Benzodiazepines. Noted. Mental Status Exam - Mental Status Exam Alert and Oriented to: Time, Place, Person Cognitive Function: Good Patient Appearance: Well Groomed Mood: Anxious, Apprehensive (about length of stay ; expects to be allowed five days of detoxification) Affect: Appropriate, Mood Congruent, Normal Range Patient Behavior: Fatigued, Cooperative Speech Pattern: Clear, Appropriate Voice Loudness: Normal Thought Process: Goal Oriented Thought Disorder: Not Present Hallucinations: Denies Suicidal Ideation: Denies Homicidal Ideation: Denies Insight/Judgement: Poor Sleep: Well Appetite: Good Gait/Station: Normal Psychiatric Findings - Problem List ([place] 1, 2,3) (1) Alcohol dependence with uncomplicated withdrawal Current Visit: Yes Status: Acute (2) Cocaine dependence, uncomplicated Current Visit: Yes Status: Chronic (3) Cannabis dependence, uncomplicated Current Visit: Yes Status: Chronic (4) Nicotine dependence Current Visit: Yes Status: Chronic Qualifiers: Nicotine product type: cigarettes Substance use status: uncomplicated Qualified Code(s): F17.210 - Nicotine dependence, cigarettes, uncomplicated (5) Bipolar disorder Current Visit: Yes Status: Chronic Comment: By history. Denied by the patient. Asymptomatic at time of this examination. (6) Non-compliance Current Visit: Yes Status: Chronic - Initial Treatment Plan Initial Treatment Plan: Records reviewed ([facility]). Psychoeducation. Sleep hygiene. Detoxification. Support. Groups. Patient persists in her denial of psychiatric issues and she refuses to consider resumption of previous regimen of mood stabilizers + atypical agents. Observation.
[2018-06-07] MEDS: chlordiazePOXIDE HCL 10 MG CAPSULE PO PRN (17:32)
[2018-06-07] MEDS: IBUPROFEN 400 MG TABLET (FP) PO PRN (17:36)
[2018-06-07] MEDS ORDERED: hydrOXYzine HCL 25 MG TABLET (FP) PO PRN (18:38)
[2018-06-07] MEDS: THIAMINE HCL 100 MG TABLET (FP) PO SCH (21:35)
[2018-06-07] MEDS: chlordiazePOXIDE 5 MG CAPSULE PO SCH (21:35)
[2018-06-08] MEDS: IBUPROFEN 400 MG TABLET (FP) PO PRN ×2 (03:36→20:30)
[2018-06-08] MEDS: NICOTINE POLACRILEX 2 MG GUM BUC PRN ×4 (05:23→19:13)
[2018-06-08] MEDS: chlordiazePOXIDE 5 MG CAPSULE PO SCH ×2 (05:23→13:37)
[2018-06-08 10:08] LABS: HEMATOCRIT 36.9 % (32.4-45.2); HEMOGLOBIN 12.5 GM/dL (10.7-15.3); MCH 31.2 pg (25.7-33.7); MEAN CELL VOLUME 91.8 fl (80-96); MEAN PLT VOLUME 9.5 fl (7.5-11.1); PLATELET COUNT 289 K/MM3 (134-434); RBC 4.02 M/mm3 (3.60-5.2); RDW 15.2 % (11.6-15.6); WHITE BLOOD COUNT 5.3 K/mm3 (4.0-10.0)
[2018-06-08 10:11] LABS: ALBUMIN 3.1 g/dl (3.4-5.0); ALK PHOS 100 U/L (45-117); ANION GAP 4 MMOL/L (8-16); BILIRUBIN,TOTAL 0.3 mg/dL (0.2-1); BLOOD UREA NITROGEN 4 mg/dL (7-18); CALCIUM 8.3 mg/dL (8.5-10.1); CHLORIDE 103 mmol/L (98-107); CO2 30 mmol/L (21-32); CREATININE 0.4 mg/dL (0.55-1.3); GLUCOSE,RANDOM 71 mg/dL (74-106); POTASSIUM 4.4 mmol/L (3.5-5.1); SGOT/AST 23 U/L (15-37); SGPT/ALT 19 U/L (13-61); SODIUM 137 mmol/L (136-145); TOT PROT 6.6 g/dl (6.4-8.2)
[2018-06-08] MEDS: PRENATAL VITAMINS W/ FOLIC ACID TABLET (FP) PO SCH (10:52)
[2018-06-08] MEDS: NICOTINE 14 MG/24 HOURS TOPICAL PATCH TD SCH (10:53)
--- NOTE | 2018-06-08 15:41 | PN ---
S CIWA - CIWA Score Nausea/Vomitin-Mild Nausea/No Vomiting Muscle Tremors: 1-None Visible, but [place] Anxiety: 1-Mildly Anxious Agitation: 1-Slight > Activity Paroxysmal Sweats: No Perspiration Orientation: 0-Oriented Tacttile Disturbances: 0-None Auditory Disturbances: 0-None Visual Disturbances: 0-None Headache: 0-None Present CIWA-Ar Total Score: 4 BHS Progress Note (SOAP) Subjective: pt states doing well with alcohol detox protocol- reviewed labs with pt O: Vital Signs - 24 hr 06/07/18 06/07/18 06/08/18 18:09 21:44 00:30 Temperature 98.8 F 97.3 F L Pulse Rate 69 68 Respiratory 17 16 18 Rate Blood Pressure 118/83 136/90 06/08/18 06/08/18 06/08/18 06:35 09:40 13:28 Temperature 98.8 F 97.6 F 97.6 F Pulse Rate 80 68 58 L Respiratory 18 18 18 Rate Blood Pressure 123/85 100/54 L 100/68 Laboratory Tests 06/08/18 06/08/18 07:00 07:00 WBC 5.3 RBC 4.02 Hgb 12.5 Hct 36.9 MCV 91.8 MCH 31.2 MCHC 34.0 RDW 15.2 Plt Count 289 D MPV 9.5 Sodium 137 Potassium 4.4 Chloride 103 Carbon Dioxide 30 Anion Gap 4 L BUN 4 L Creatinine 0.4 L Creat Clearance w eGFR 182.72 Random Glucose 71 L Calcium 8.3 L Total Bilirubin 0.3 AST 23 ALT 19 Alkaline Phosphatase 100 Total Protein 6.6 Albumin 3.1 L mild anemia, decreased BUN/albumin a/p: continue alcohol detox protocol- pt doing well d/w pt need to increase protein intake given the low albumin and BUN
[2018-06-08] MEDS ORDERED: chlordiazePOXIDE HCL 10 MG CAPSULE PO PRN (21:00)
[2018-06-08] MEDS: chlordiazePOXIDE HCL 10 MG CAPSULE PO SCH (21:30)
[2018-06-08] MEDS: THIAMINE HCL 100 MG TABLET (FP) PO SCH (23:31)
[2018-06-09] MEDS: chlordiazePOXIDE HCL 10 MG CAPSULE PO SCH (05:59)
[2018-06-09] MEDS: IBUPROFEN 400 MG TABLET (FP) PO PRN (07:27)
[2018-06-09] MEDS: NICOTINE POLACRILEX 2 MG GUM BUC PRN (07:29)
[2018-06-09 09:21] VITALS: BP 99/62; PULSE 67; TEMP 98.4
--- NOTE | 2018-06-09 16:04 | DS ---
[facility] Detox Discharge Summary Admission Date: 06/06/18 Discharge Date: 06/09/18 - History Present History: Alcohol Dependence, Opioid Dependence Additional Comments: 33 years old female admitted on 06/06/18 for alcohol and opiate withdrawal stabilization completed detox regimen aftercare [facility] Pertinent Past History: bring medication list and lab report to aftercare appointment - Physical Exam Results Vital Signs: Vital Signs Temperature 98.4 F 06/09/18 09:19 Pulse Rate 67 06/09/18 09:19 Respiratory Rate 18 06/09/18 09:19 Blood Pressure 99/62 06/09/18 09:19 O2 Sat by Pulse Oximetry (%) Pertinent Admission Physical Exam Findings: alcohol and opiate withdrawal sx Laboratory Last Values WBC 5.3 K/mm3 (4.0-10.0) 06/08/18 07:00 RBC 4.02 M/mm3 (3.60-5.2) 06/08/18 07:00 Hgb 12.5 GM/dL (10.7-15.3) 06/08/18 07:00 Hct 36.9 % (32.4-45.2) 06/08/18 07:00 MCV 91.8 fl (80-96) 06/08/18 07:00 MCH 31.2 pg (25.7-33.7) 06/08/18 07:00 MCHC 34.0 g/dl (32.0-36.0) 06/08/18 07:00 RDW 15.2 % (11.6-15.6) 06/08/18 07:00 Plt Count 289 K/MM3 (134-434) D 06/08/18 07:00 MPV 9.5 fl (7.5-11.1) 06/08/18 07:00 Sodium 137 mmol/L (136-145) 06/08/18 07:00 Potassium 4.4 mmol/L (3.5-5.1) 06/08/18 07:00 Chloride 103 mmol/L (98-107) 06/08/18 07:00 Carbon Dioxide 30 mmol/L (21-32) 06/08/18 07:00 Anion Gap 4 MMOL/L (8-16) L 06/08/18 07:00 BUN 4 mg/dL (7-18) L 06/08/18 07:00 Creatinine 0.4 mg/dL (0.55-1.3) L 06/08/18 07:00 Creat Clearance w eGFR 182.72 (>60) 06/08/18 07:00 Random Glucose 71 mg/dL (74-106) L 06/08/18 07:00 Calcium 8.3 mg/dL (8.5-10.1) L 06/08/18 07:00 Total Bilirubin 0.3 mg/dL (0.2-1) 06/08/18 07:00 AST 23 U/L (15-37) 06/08/18 07:00 ALT 19 U/L (13-61) 06/08/18 07:00 Alkaline Phosphatase 100 U/L (45-117) 06/08/18 07:00 Total Protein 6.6 g/dl (6.4-8.2) 06/08/18 07:00 Albumin 3.1 g/dl (3.4-5.0) L 06/08/18 07:00 lab noted - Treatment Hospital Course: Detox Protocol Followed, Detoxed Safely, Responded well, Discharged Condition Good, Rehab Referral Accepted - Medication Discharge Medications: Ambulatory Orders Benztropine Mesylate [Cogentin -] 1 mg PO BID #60 tablet 07/12/17 Haloperidol [Haldol -] 5 mg PO BID #60 tablet 07/12/17 traZODone HCL [Desyrel -] 50 mg PO HS #30 tablet 07/12/17 - Diagnosis (1) Uncomplicated opioid dependence Status: Acute (2) Alcohol dependence with uncomplicated withdrawal Status: Acute (3) Nicotine dependence Status: Acute Qualifiers: Nicotine product type: cigarettes Substance use status: in withdrawal Qualified Code(s): F17.213 - Nicotine dependence, cigarettes, with withdrawal - AMA Did Patient Leave Against Medical Advice: No
== END 2018-06-09 10:22 | disposition home or self-care (01) | DRG 897 ==
LOC: YASAS 12:39 → Y3N 18:55
PROVIDERS: ADMIT Surgery; ATTEND Surgery
PROC: HZ2ZZZZ Detoxification Services for Substance Abuse Treatment (ICD-10-PCS; principal; 2018-06-06)
DX: F10.230 Alcohol dependence with withdrawal, uncomplicated (principal); F14.20 Cocaine dependence, uncomplicated; F12.20 Cannabis dependence, uncomplicated; F17.210 Nicotine dependence, cigarettes, uncomplicated; F31.9 Bipolar disorder, unspecified; M54.9 Dorsalgia, unspecified; G89.29 Other chronic pain; R01.1 Cardiac murmur, unspecified; E66.9 Obesity, unspecified; Z68.31 Body mass index [BMI] 31.0-31.9, adult; Z91.19 Patient's noncompliance with other medical treatment and regimen; Z91.5 Personal history of self-harm
CPT/HCPCS: 36415; 80053; 85027

== ENCOUNTER 2018-08-08 17:34 | Inpatient (IN) | payer OTHER ==
[2018-08-08 22:39] VITALS: BMI 33.4
--- NOTE | 2018-08-08 23:54 | HP ---
CIWA Score Nausea/Vomitin Muscle Tremors: 3 Anxiety: 2 Agitation: 2 Paroxysmal Sweats: 2 Orientation: 0-Oriented Tacttile Disturbances: 2-Mild Itch/Numbness/Burn Auditory Disturbances: 2-Mild Harshness/Frighten Visual Disturbances: 2-Mild Sensitivity Headache: 1-Very Mild CIWA-Ar Total Score: 18 - Admission Criteria OASAS Guidelines: Admission for Medically Managed Detox: Requires at least one of the followin. CIWA greater than 12 2. Seizures within the past 24 hours 3. Delirium tremens within the past 24 hours 4. Hallucinations within the past 24 hours 5. Acute intervention needed for co occurring medical disorder 6. Acute intervention needed for co occurring psychiatric disorder 7. Severe withdrawal that cannot be handled at a lower level of care (continued vomiting, continued diarrhea, abnormal vital signs) requiring intravenous medication and/or fluids 8. Admission ROS BHS - HPI Chief Complaint: DEPENDENT ON ETOH AND MARIJUANA Allergies/Adverse Reactions: Allergies Allergy/AdvReac Type Severity Reaction Status Date / Time No Known Allergies Allergy Verified 08/08/18 22:12 History of Present Illness: THE PT. IS REQUESTING ADMISSION TO THE DETOX UNIT AND CAME FOR MEDICAL CLEARANCE AND H AND PE Exam Limitations: No Limitations - Ebola screening Have you traveled outside of the country in the last 21 days: No (N) Have you had contact with anyone from an Ebola affected area: No Have you been sick,other than usual withdrawal symptoms: No Do you have a fever: No - Review of Systems Constitutional: See HPI, Malaise, Weakness EENT: reports: See HPI Respiratory: reports: See HPI Cardiac: reports: See HPI GI: reports: See HPI : reports: No Symptoms Reported, See HPI Musculoskeletal: reports: See HPI, Muscle Pain, Muscle Weakness Integumentary: reports: See HPI, Flushing, Sweating Neuro: reports: See HPI, Headache, Tremors, Weakness Hematology: reports: See HPI Psychiatric: reports: Judgement Intact, Orientated x3, Anxious, Depressed Patient History - Patient Medical History Hx Anemia: No Hx Asthma: No Hx Chronic Obstructive Pulmonary Disease (COPD): No Hx Cancer: No Hx Cardiac Disorders: No Hx Congestive Heart Failure: No Hx Hypertension: No Hx Hypercholesterolemia: No Hx Pacemaker: No HX Cerebrovascular Accident: No Hx Seizures: No Hx Dementia: No Hx Diabetes: No Hx Gastrointestinal Disorders: No Hx Liver Disease: No Hx Genitourinary Disorders: No Hx Sexually Transmitted Disorders: No Hx Renal Disease (ESRD): No Hx Thyroid Disease: No Hx Human Immunodeficiency Virus (HIV): No (last 06/16 nrgative) Hx Hepatitis C: No Hx Depression: Yes Hx Schizophrenia: No - Patient Surgical History Past Surgical History: No Hx Neurologic Surgery: No Hx Cataract Extraction: No Hx Cardiac Surgery: No Hx Lung Surgery: No Hx Breast Surgery: No Hx Breast Biopsy: No Hx Abdominal Surgery: No Hx Appendectomy: No Hx Cholecystectomy: No Hx Genitourinary Surgery: No Hx Section: No Hx Orthopedic Surgery: No Hx Hysterectomy: No Anesthesia Reaction: No - PPD History Date: 03/16/18 Results: 0mm - Reproductive History Patient is a Female of Child Bearing Age (11 -55 yrs old): Yes Last Menstrual Period: 07/02/18 Patient : No - Smoking Cessation Smoking history: Current every day smoker Have you smoked in the past 12 months: Yes Aproximately how many cigarettes per day: 2 Cigars Per Day: 0 Hx Chewing Tobacco Use: No Initiated information on smoking cessation: Yes 'Breaking Loose' booklet given: 08/08/18 - Substance & Tx. History Hx Alcohol Use: Yes Hx Substance Use: Yes Substance Use Type: Alcohol, Marijuana Hx Substance Use Treatment: Yes - Substances abused Alcohol Substance route: Oral Frequency: Daily Amount used: 5 PINTS Age of first use: 15 Date of last use: 08/07/18 Marijuana/Hashish Substance route: Smoking Frequency: 1-2 times per week Amount used: 1 BLUNT Age of first use: 15 Date of last use: 08/06/18 Family Disease History - Family Disease History Family Disease History: Other: Father (), Mother (SUBSTANCE ABUSE), Brother (no contact), Sister (no contact) Admission Physical Exam BHS - Vital Signs Vital Signs: Vital Signs - 24 hr 08/08/18 22:11 Temperature 97.1 F L Pulse Rate 71 Respiratory 18 Rate Blood Pressure 97/67 - Physical General Appearance: Yes: No Apparent Distress, Nourished, Appropriately Dressed , Alcohol on Breath, Tremorous, Irritable, Sweating, Anxious HEENTM: Yes: Hearing grossly Normal, Normocephalic, Normal Voice, ERIKA Respiratory: Yes: Chest Non-Tender, Lungs Clear, Normal Breath Sounds, No Respiratory Distress, No Accessory Muscle Use Neck: Yes: No masses,lesions,Nodules, Supple, Trachea in good position Breast: Yes: Breast Exam Deferred, Axillae without masses Cardiology: Yes: Regular Rhythm, S1, S2, Tachycardia Abdominal: Yes: Normal Bowel Sounds, Non Tender, Soft, Protuberent Back: Yes: Normal Inspection Musculoskeletal: Yes: full range of Motion, Muscle Pain, Muscle weakness Extremities: Yes: Normal Capillary Refill, Normal Range of Motion, Non-Tender, Tremors 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, Fully Oriented, Alert, Motor Strength 5/5, Depressed Affect Integumentary: Yes: Normal Color, Warm, Moist Lymphatic: Yes: Within Normal Limits - Diagnostic (1) Depression Current Visit: Yes Status: Chronic Qualifiers: Depression Type: unspecified Qualified Code(s): F32.9 - Major depressive disorder, single episode, unspecified (2) Alcohol dependence with uncomplicated withdrawal Current Visit: No Status: Chronic (3) Cannabis dependence, uncomplicated Current Visit: No Status: Chronic (4) Enlarged thyroid Current Visit: No Status: Chronic Cleared for Admission S - Detox or Rehab [facility] Level of Care: Medically Supervised Detox Regimen/Protocol: Librium Breathalyzer - Breathalyzer Breathalyzer: 0.173 POC Urine test - Test device test lot number: [id number] Expiration date: 10/30/19 - Control test control: Yes Urine Drug Screen - Test Device Lot number: [id number] Expiration date: 04/28/20 - Control Is test valid?: Yes - Results Drug screen NEGATIVE: No Urine drug screen results: THC-Marijuana, DOMINIC-Cocaine Inpatient Rehab Admission - Rehab Decision to Admit Inpatient rehab admission?: No
[2018-08-09] MEDS ORDERED: METHOCARBAMOL 500 MG TABLET PO PRN
[2018-08-09] MEDS ORDERED: ACETAMINOPHEN 325 MG TABLET (FP) PO PRN ×2
[2018-08-09] MEDS ORDERED: hydrOXYzine PAMOATE 25 MG CAPSULE (FP) PO PRN
[2018-08-09] MEDS ORDERED: MAG HYDROX/AL HYDROX/SIMETH 30 ML UNIT-DOSE CUP PO PRN
[2018-08-09] MEDS ORDERED: chlordiazePOXIDE HCL 25 MG CAPSULE PO ONE
[2018-08-09] MEDS ORDERED: BISMUTH SUBSALICYLATE 524 MG/30 ML UD PO PRN
[2018-08-09] MEDS ORDERED: MELATONIN 5 MG TABLETS PO PRN
[2018-08-09] MEDS ORDERED: MAGNESIUM CITRATE 300 ML BOTTLE PO PRN
[2018-08-09] MEDS ORDERED: chlordiazePOXIDE HCL 25 MG CAPSULE PO PRN
[2018-08-09] MEDS ORDERED: MENTHOL/PHENOL 1 EACH UD MM PRN
[2018-08-09] MEDS ORDERED: IBUPROFEN 400 MG TABLET (FP) PO PRN
[2018-08-09] MEDS: chlordiazePOXIDE HCL 25 MG CAPSULE PO SCH ×4 (05:52→23:00)
[2018-08-09] MEDS: NICOTINE POLACRILEX 2 MG GUM BUC PRN ×3 (09:06→17:49)
--- NOTE | 2018-08-09 11:02 | PN ---
S CIWA - CIWA Score Nausea/Vomitin-No Nausea/No Vomiting Muscle Tremors: 3 Anxiety: 3 Agitation: 3 Paroxysmal Sweats: 3 Orientation: 0-Oriented Tacttile Disturbances: 0-None Auditory Disturbances: 0-None Visual Disturbances: 0-None Headache: 0-None Present CIWA-Ar Total Score: 12 BHS Progress Note (SOAP) Subjective: sweats anxiety restless interrupted sleep Objective: 08/09/18 11:01 Vital Signs Temperature 98.2 F 08/09/18 10:06 Pulse Rate 78 08/09/18 10:06 Respiratory Rate 17 08/09/18 10:06 Blood Pressure 123/92 08/09/18 10:06 O2 Sat by Pulse Oximetry (%) labs pending aaox3 ambulating no acute distress Assessment: 08/09/18 11:13 withdrawal sx Plan: continue detox increase fluids pending labs
[2018-08-09] MEDS: NICOTINE 7 MG/24 HOURS TOPICAL PATCH TD SCH (13:02)
[2018-08-09] MEDS: PRENATAL VITAMINS W/ FOLIC ACID TABLET (FP) PO SCH (13:28)
[2018-08-09] MEDS: THIAMINE HCL 100 MG TABLET (FP) PO SCH (23:00)
[2018-08-10] MEDS: chlordiazePOXIDE HCL 25 MG CAPSULE PO SCH ×4 (05:37→22:26)
[2018-08-10] MEDS: NICOTINE 7 MG/24 HOURS TOPICAL PATCH TD SCH (10:33)
[2018-08-10] MEDS: PRENATAL VITAMINS W/ FOLIC ACID TABLET (FP) PO SCH (10:34)
--- NOTE | 2018-08-10 11:05 | PN ---
S CIWA - CIWA Score Nausea/Vomitin-No Nausea/No Vomiting Muscle Tremors: 2 Anxiety: 2 Agitation: 3 Paroxysmal Sweats: 2 Orientation: 0-Oriented Tacttile Disturbances: 0-None Auditory Disturbances: 0-None Visual Disturbances: 0-None Headache: 0-None Present CIWA-Ar Total Score: 9 BHS Progress Note (SOAP) Subjective: sweats tired interrupted sleep body aches Objective: 08/10/18 11:05 Vital Signs Temperature 96.3 F L 08/10/18 09:58 Pulse Rate 70 08/10/18 09:58 Respiratory Rate 18 08/10/18 09:58 Blood Pressure 132/91 08/10/18 09:58 O2 Sat by Pulse Oximetry (%) Laboratory Tests 08/08/18 23:03 POC Urine HCG, Qual Negative lab results pending aaox3 ambulating no acute distress Assessment: 08/10/18 11:06 withdrawal sx Plan: continue detox increase fluids pending labs
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
[2018-08-10] MEDS: BENZTROPINE MESYLATE 1 MG TABLET (FP) PO SCH ×2 (15:27→22:29)
[2018-08-10] MEDS: HALOPERIDOL 5 MG TABLET (FP) PO SCH ×2 (15:27→22:26)
[2018-08-10] MEDS: NICOTINE POLACRILEX 2 MG GUM BUC PRN ×2 (15:43→22:27)
[2018-08-10] MEDS: THIAMINE HCL 100 MG TABLET (FP) PO SCH (22:26)
[2018-08-11] MEDS: NICOTINE POLACRILEX 2 MG GUM BUC PRN ×4 (04:05→17:20)
[2018-08-11] MEDS ORDERED: chlordiazePOXIDE HCL 10 MG CAPSULE PO PRN (05:00)
[2018-08-11] MEDS: chlordiazePOXIDE HCL 10 MG CAPSULE PO SCH ×4 (06:12→22:04)
[2018-08-11 10:00] LABS: ALBUMIN 3.6 g/dl (3.4-5.0); BILIRUBIN,TOTAL 0.3 mg/dL (0.2-1); BLOOD UREA NITROGEN 13.5 mg/dL (7-18); CREATININE 0.5 mg/dL (0.55-1.3); POTASSIUM 4.2 mmol/L (3.5-5.1); TOT PROT 7.5 g/dl (6.4-8.2)
[2018-08-11 10:06] LABS: HEMOGLOBIN 13.9 GM/dL (10.7-15.3); MCH 30.4 pg (25.7-33.7); MCHC 33.9 g/dl (32.0-36.0); MEAN CELL VOLUME 89.8 fl (80-96); MEAN PLT VOLUME 9.7 fl (7.5-11.1); RBC 4.56 M/mm3 (3.60-5.2); RDW 15.6 % (11.6-15.6); WHITE BLOOD COUNT 8.1 K/mm3 (4.0-10.0)
[2018-08-11 10:20] LABS: PLATELET COUNT 341 K/MM3 (134-434)
[2018-08-11] MEDS: PRENATAL VITAMINS W/ FOLIC ACID TABLET (FP) PO SCH (10:30)
[2018-08-11] MEDS: HALOPERIDOL 5 MG TABLET (FP) PO SCH ×2 (10:30→22:04)
[2018-08-11] MEDS: NICOTINE 7 MG/24 HOURS TOPICAL PATCH TD SCH (10:31)
[2018-08-11] MEDS: BENZTROPINE MESYLATE 1 MG TABLET (FP) PO SCH ×2 (10:33→22:06)
--- NOTE | 2018-08-11 11:56 | PN ---
BHS CIWA - CIWA Score Nausea/Vomitin-No Nausea/No Vomiting Muscle Tremors: 2 Anxiety: 1-Mildly Anxious Agitation: 1-Slight > Activity Paroxysmal Sweats: 1-Minimal Palms Moist Orientation: 0-Oriented Tacttile Disturbances: 0-None Auditory Disturbances: 0-None Visual Disturbances: 0-None Headache: 0-None Present CIWA-Ar Total Score: 5 BHS Progress Note (SOAP) Subjective: feeling better little sweats tired Objective: 08/11/18 11:55 Vital Signs Temperature 97.3 F L 08/11/18 10:09 Pulse Rate 77 08/11/18 10:09 Respiratory Rate 18 08/11/18 10:09 Blood Pressure 118/81 08/11/18 10:09 O2 Sat by Pulse Oximetry (%) Laboratory Tests 08/08/18 08/11/18 08/11/18 23:03 07:00 07:00 WBC 8.1 RBC 4.56 Hgb 13.9 Hct 41.0 MCV 89.8 MCH 30.4 MCHC 33.9 RDW 15.6 Plt Count 341 MPV 9.7 Sodium 138 Potassium 4.2 Chloride 103 Carbon Dioxide 28 Anion Gap 7 L BUN 13.5 Creatinine 0.5 L Est GFR (CKD-EPI)AfAm 146.35 Est GFR (CKD-EPI)NonAf 126.27 Random Glucose 68 L Calcium 9.0 Total Bilirubin 0.3 AST 16 ALT 13 Alkaline Phosphatase 97 Total Protein 7.5 Albumin 3.6 POC Urine HCG, Qual Negative RPR Titer 08/11/18 07:00 WBC RBC Hgb Hct MCV MCH MCHC RDW Plt Count MPV Sodium Potassium Chloride Carbon Dioxide Anion Gap BUN Creatinine Est GFR (CKD-EPI)AfAm Est GFR (CKD-EPI)NonAf Random Glucose Calcium Total Bilirubin AST ALT Alkaline Phosphatase Total Protein Albumin POC Urine HCG, Qual RPR Titer Nonreactive labs noted aaox3 ambulating no acute distress Assessment: 08/11/18 11:55 mild withdrawal sx Plan: continue detox increase fluids
[2018-08-11] MEDS: THIAMINE HCL 100 MG TABLET (FP) PO SCH (22:04)
[2018-08-12] MEDS: NICOTINE POLACRILEX 2 MG GUM BUC PRN ×6 (03:02→22:32)
[2018-08-12] MEDS: chlordiazePOXIDE HCL 10 MG CAPSULE PO SCH ×2 (05:51→17:45)
[2018-08-12] MEDS: MAGNESIUM HYDROX 2400MG/30ML ORAL SUSPENSION 30 ML CUP PO PRN (07:16)
[2018-08-12] MEDS: PRENATAL VITAMINS W/ FOLIC ACID TABLET (FP) PO SCH (10:53)
[2018-08-12] MEDS: HALOPERIDOL 5 MG TABLET (FP) PO SCH ×2 (10:53→22:09)
[2018-08-12] MEDS: BENZTROPINE MESYLATE 1 MG TABLET (FP) PO SCH ×2 (10:53→22:08)
[2018-08-12] MEDS: NICOTINE 7 MG/24 HOURS TOPICAL PATCH TD SCH (10:54)
--- NOTE | 2018-08-12 11:09 | PN ---
S CIWA - CIWA Score Nausea/Vomitin-No Nausea/No Vomiting Muscle Tremors: 2 Anxiety: 1-Mildly Anxious Agitation: 0-Normal Activity Paroxysmal Sweats: No Perspiration Orientation: 0-Oriented Tacttile Disturbances: 0-None Auditory Disturbances: 0-None Visual Disturbances: 0-None Headache: 0-None Present CIWA-Ar Total Score: 3 BHS Progress Note (SOAP) Subjective: sweats tired Objective: 08/12/18 11:09 Vital Signs Temperature 97.8 F 08/12/18 09:51 Pulse Rate 70 08/12/18 09:51 Respiratory Rate 18 08/12/18 09:51 Blood Pressure 111/67 08/12/18 09:51 O2 Sat by Pulse Oximetry (%) aaox3 ambulating no acute distress Assessment: 08/12/18 11:09 mild withdrawal sx Plan: continue detox increase fluids d/c in am
[2018-08-12 21:51] VITALS: TEMP 97.9
[2018-08-12] MEDS ORDERED: SENNOSIDES 8.6MG TABLET (FP) PO SCH (22:00)
[2018-08-12] MEDS: THIAMINE HCL 100 MG TABLET (FP) PO SCH (22:09)
[2018-08-13] MEDS: NICOTINE POLACRILEX 2 MG GUM BUC PRN ×3 (02:03→08:36)
[2018-08-13] MEDS: chlordiazePOXIDE HCL 10 MG CAPSULE PO SCH (05:25)
[2018-08-13] MEDS: MAGNESIUM HYDROX 2400MG/30ML ORAL SUSPENSION 30 ML CUP PO PRN (05:26)
[2018-08-13 06:56] VITALS: BP 116/81; PULSE 72
== END 2018-08-13 10:04 | disposition home or self-care (01) | DRG 897 ==
LOC: YASAS 17:34 → Y6N 08-09 00:26
PROVIDERS: ADMIT Neuromusculoskeletal Medicine & OMM; ATTEND Neuromusculoskeletal Medicine & OMM
PROC: HZ2ZZZZ Detoxification Services for Substance Abuse Treatment (ICD-10-PCS; principal; 2018-08-09)
DX: F10.230 Alcohol dependence with withdrawal, uncomplicated (principal); F12.20 Cannabis dependence, uncomplicated; F17.210 Nicotine dependence, cigarettes, uncomplicated; F32.9 Major depressive disorder, single episode, unspecified; R00.0 Tachycardia, unspecified; Z59.0 Homelessness
CPT/HCPCS: 36415; 80053; 81025; 85027; 86593